=== PATIENT | male | born 1965 | race Caucasian/White ===

== ENCOUNTER 2021-06-18 19:28 | Inpatient (IN) | payer OTHER ==
[2021-06-18] MEDS ORDERED: VANCOMYCIN IV PER PHARMACY 1 EACH MISC MISCELLANE PRN (21:23)
[2021-06-18] MEDS ORDERED: SODIUM CHLORIDE 0.9% 1,000 ML IV STA (21:23)
[2021-06-18] MEDS ORDERED: MORPHINE SULFATE 4 MG/ML SYRINGE IVP STA (21:23)
[2021-06-18] MEDS ORDERED: VANCOMYCIN 1,750 MG in SODIUM CHLORIDE 0.9% 500 ML 500 ML IVPB ONE (21:45)
[2021-06-18] MEDS ORDERED: ACETAMINOPHEN TAB 500 MG TAB PO STA (22:39)
[2021-06-18] MEDS ORDERED: IBUPROFEN 600 MG TAB PO STA (22:39)
[2021-06-18 22:58] LABS: Albumin 3.9 g/dL (3.5-5.0); Calcium 8.7 mg/dL (8.4-10.2); Potassium 3.8 mmol/L (3.5-5.1); Total Bilirubin 1.5 mg/dL (0.2-1.3)
--- NOTE | 2021-06-18 23:04 | ED ---
Skin/Abscess/FB HPI - General Chief complaint: Skin/Abscess/Foreign Body Stated complaint: Cellulitis Time Seen by Provider: 06/18/21 21:09 Source: patient Mode of arrival: ambulatory Limitations: no limitations - History of Present Illness Initial comments: 55-year-old male presenting to the emergency department with a chief complaint of a skin infection. Patient reports this started about 3 days ago on his right buttock and has significantly increased since. States yesterday he was given Rocephin and started on doxycycline and Keflex by an urgent care. States it is not improving in symptoms at all. States now he is also developed another sim ilar infection on the right lower region of the abdomen. He reports fevers and chills at home. Denies any nausea vomiting or diarrhea. Not immunocompromise. Not diabetic. - Related Data Allergies Allergy/AdvReac Type Severity Reaction Status Date / Time No Known Allergies Allergy Verified 06/18/21 19:42 Review of Systems ROS Statement: Those systems with pertinent positive or pertinent negative responses have been documented in the HPI. ROS Other: All systems not noted in ROS Statement are negative. Past Medical History Past Medical History: Hyperlipidemia, Hypertension History of Any Multi-Drug Resistant Organisms: None Reported Past Surgical History: Hernia Repair, Orthopedic Surgery Past Psychological History: No Psychological Hx Reported Smoking Status: Former smoker Past Alcohol Use History: Occasional Past Drug Use History: None Reported General Exam Limitations: no limitations General appearance: alert, in no apparent distress, obese Head exam: Present: atraumatic, normocephalic, normal inspection Eye exam: Present: normal appearance Pupils: Present: normal accommodation ENT exam: Present: normal exam, normal oropharynx, mucous membranes moist Neck exam: Present: normal inspection, full ROM. Absent: tenderness Respiratory exam: Present: normal lung sounds bilaterally. Absent: respiratory distress, wheezes, rales, rhonchi, stridor Cardiovascular Exam: Present: regular rate, normal rhythm, normal heart sounds. Absent: systolic murmur GI/Abdominal exam: Present: soft. Absent: distended, tenderness, guarding Rectal exam: Absent: normal inspection (Large region of cellulitis in the right gluteal region) Extremities exam: Present: normal inspection, full ROM, normal capillary refill. Absent: tenderness Back exam: Present: normal inspection, full ROM. Absent: tenderness Neurological exam: Present: alert, oriented X3 Psychiatric exam: Present: normal affect, normal mood Skin exam: Present: warm, dry, intact, normal color Course Vital Signs 06/18/21 19:38 Temperature 99.9 F H Pulse Rate 113 H Respiratory 20 Rate Blood Pressure 147/82 O2 Sat by Pulse 94 L Oximetry Medical Decision Making - Medical Decision Making 55-year-old male presents to emergency with a chief complaint of skin infection. On physical examination, he has extensive cellulitis in the right gluteal region. Knee developing cellulitis in the lower abdomen. Patient is feeling outpatient treatment. Patient was started on vancomycin here. I did not initiate Rocephin considering he received a dose yesterday. Lactic acid within normal limits. Leukocytosis of 15,000. Patient given IV fluids, antiemetics and morphine for pain. CRP 26. X-ray pending to rule out that the infection site. Creatinine kinase pending. Patient will be admitted for further medical management. I discussed the case with . Case discussed with Dr. Alexander Infectious disease consult - Lab Data Result diagrams: 06/18/21 22:50 06/18/21 22:20 Lab Results 06/18/21 06/18/21 06/18/21 Range/Units 22:20 22:20 22:50 WBC 15.9 H (3.8-10.6) k/uL RBC 4.47 (4.30-5.90) m/uL Hgb 13.1 (13.0-17.5) gm/dL Hct 37.7 L (39.0-53.0) % MCV 84.4 (80.0-100.0) fL MCH 29.4 (25.0-35.0) pg MCHC 34.8 (31.0-37.0) g/dL RDW 13.2 (11.5-15.5) % Plt Count 122 L (150-450) k/uL MPV 7.9 Sodium 133 L (137-145) mmol/L Potassium 3.8 (3.5-5.1) mmol/L Chloride 97 L (98-107) mmol/L Carbon Dioxide 26 (22-30) mmol/L Anion Gap 10 mmol/L BUN 17 (9-20) mg/dL Creatinine 1.23 (0.66-1.25) mg/dL Est GFR (CKD-EPI)AfAm 75 (>60 ml/min/1.73 sqM) Est GFR (CKD-EPI)NonAf 65 (>60 ml/min/1.73 sqM) Glucose 147 H (74-99) mg/dL Plasma Lactic Acid Jose Alfredo 1.5 (0.7-2.0) mmol/L Calcium 8.7 (8.4-10.2) mg/dL Total Bilirubin 1.5 H (0.2-1.3) mg/dL AST 48 (17-59) U/L ALT 46 (4-49) U/L Alkaline Phosphatase 121 (38-126) U/L C-Reactive Protein 26.0 H (<1.0) mg/dL Total Protein 7.0 (6.3-8.2) g/dL Albumin 3.9 (3.5-5.0) g/dL Disposition Clinical Impression: Cellulitis, gluteal, right Disposition: ADMITTED IP TO THIS HOSP Condition: Fair Is patient prescribed a controlled substance at d/c from ED?: No Referrals: Nonstaff,Physician [Primary Care Provider] - 1-2 days Time of Disposition: 00:23
[2021-06-18 23:28] LABS: HCT 37.7 % (39.0-53.0); HGB 13.1 gm/dL (13.0-17.5); MCH 29.4 pg (25.0-35.0); MCHC 34.8 g/dL (31.0-37.0); MCV 84.4 fL (80.0-100.0); Mean Platelet Volume 7.9; Platelet Count 122 k/uL (150-450); RBC 4.47 m/uL (4.30-5.90); RDW 13.2 % (11.5-15.5); WBC 15.9 k/uL (3.8-10.6)
[2021-06-19] MEDS ORDERED: NALOXONE 0.4 MG/ML 1 ML VIAL IV PRN (00:28)
[2021-06-19] MEDS ORDERED: MORPHINE SULFATE 4 MG/ML SYRINGE IV PRN (00:28)
[2021-06-19] MEDS ORDERED: ONDANSETRON 4 MG/2 ML VIAL IVP PRN (00:28)
--- NOTE | 2021-06-19 01:06 | XR ---
EXAMINATION TYPE: XR pelvis AP view DATE OF EXAM: 06/19/2021 COMPARISON: NONE HISTORY: Cellulitis TECHNIQUE: Single view FINDINGS: Pelvic ring is intact. Proximal femurs and hip joints are intact. Sacroiliac joints appear normal. There is no evidence of free air in the pelvis. There are no pathologic calcifications. IMPRESSION: Negative exam. No sign of osteomyelitis.
[2021-06-19 01:16] LABS: Band Neutrophils % 12 %; Lymphocytes # (M) 0.32 k/uL (1.0-4.8); Monocytes # (M) 0.95 k/uL (0-1.0); Neutrophils % (M) 80 %; Nucleated Red Blood Cells 0 /100 WBC (0-0); Total Cells Counted 100
--- NOTE | 2021-06-19 01:36 | CT ---
EXAMINATION TYPE: CT abdomen pelvis w con DATE OF EXAM: 06/19/2021 COMPARISON: None HISTORY: glute abscess CT DLP: 2564.4 mGycm Automated exposure control for dose reduction was used. CONTRAST: Performed with IV Contrast, patient injected with 100 mL of Isovue 300. Images obtained from the diaphragm to the floor the pelvis with IV contrast. Lung bases are clear. There is no pleural effusion. Heart size is normal. There is no pericardial eff usion. There is hypodensity in the liver consistent with some fatty infiltration. Spleen is intact. Spleen i s enlarged and measures 18 cm. There is no pancreatic mass. There is small calcified gallstone. The b ile ducts are not dilated. There is no pancreatic mass. The stomach is intact. There is no adrenal mass. Kidneys show satisfactory contrast opacification. There is no hydronephrosi s. Ureters are not dilated. There is no retroperitoneal adenopathy. Appendix appears normal. Bladder distends smoothly. There is no inguinal hernia. There is no free fluid in the pelvis. There is no mes enteric edema. There is no ascites or free air. There is no evidence of bowel obstruction. Delayed im ages show normal renal excretion. The lumbar vertebra have normal alignment. There is spondylotic changes in the mid and lower lumbar s pine. There is no compression fracture. The bony pelvis is intact. Hip joints are intact. There is subcutaneous edema involving the right buttock. This extends to the gluteal cleft and over t he posterior right gluteal muscle. Area of inflammation measures up to 2.5 cm in thickness on the med ial aspect of the right buttock at the gluteal cleft. IMPRESSION: Inflammatory changes in the subcutaneous tissues of the right buttock with thickening. This is consis tent with cellulitis and phlegmon. No drainable fluid collection seen. No of acute abnormality within the abdomen and pelvis. Cholelithiasis. Splenomegaly.
[2021-06-19] MEDS ORDERED: AMPICILLIN-SULBACTAM 3 GM in SODIUM CHLORIDE 0.9% 100 ML IVPB SCH (01:45)
--- NOTE | 2021-06-19 01:56 | P.HPIM ---
History of Present Illness H&P Date: 06/19/21 Chief Complaint: right buttock infection 55 year old male with hypertension comes in with 3 days history of skin infection of the right buttock , now spreading to the right lower abd over the suprapubic area with a black center. no drainage has been noticed from both area. this is associated with pain , and fever/chills. never had any similar issues in the past, doesnt recall any injury to the area, or injection . he went to an urgent care couple days ago , and was given an injection of rocephin and started on PO keflex and doxy , with no improvement over past two days , so he decided tocome in for evaluation blood work did show leukocytosis , imaging did not show any drainable collection or gas bubbles in the soft tissue. Review of Systems Pertinent positives as noted in HPI. All other systems were reviewed and are negative Past Medical History Past Medical History: Hyperlipidemia, Hypertension History of Any Multi-Drug Resistant Organisms: None Reported Past Surgical History: Hernia Repair, Orthopedic Surgery Past Psychological History: No Psychological Hx Reported Smoking Status: Former smoker Past Alcohol Use History: Occasional Past Drug Use History: None Reported - Past Family History family Family Medical History: No Reported History Medications and Allergies Allergies Allergy/AdvReac Type Severity Reaction Status Date / Time No Known Allergies Allergy Verified 06/18/21 19:42 Physical Exam Vitals: Vital Signs Temp Pulse Resp BP Pulse Ox 06/19/21 00:49 98.9 F 86 20 121/67 96 06/18/21 23:00 100.0 F H 100 20 130/77 98 06/18/21 19:38 99.9 F H 113 H 20 147/82 94 L Intake and Output 06/18/21 06/18/21 06/19/21 14:59 22:59 06:59 Other: Weight 108.862 kg Constitutional: No acute distress, conversant, pleasant Eyes: Anicteric sclerae, moist conjunctiva, Pupils equal round reactive to light ENMT: NC/AT Oropharynx clear, no erythema, or exudates Neck: Supple, FROM, no masses, or JVD No carotid bruits No thyromegaly Lungs: Clear to auscultation Clear to percussion Normal respiratory effort, no accessory muscle use Cardiovascular: Heart regular in rate and rhythm, No murmurs, gallops, or rubs No peripheral edema Abdominal: Soft Nontender, no guarding, rebound or rigidity Abdomen moving with respiration Normoactive bowel sounds No hepatomegaly, No splenomegaly No palpable mass No abdominal wall hernia noted Skin: there large area of induration and erythema tender and warm to palpation over the right buttock , extending to the perineum , not involving the scrotal area. , no drainage noticed. another smaller area 3X3 cm over the right suprapubic region with central black skin discoloration and surrounded by induration adn erythema no drainage , otherwise Normal temperature, tone, texture, turgor Extremities: No digital cyanosis No clubbing Pedal pulses intact and symmetrical Radial pulses intact and symmetrical No calf tenderness Psychiatric: Alert and oriented to person, place and time Appropriate affect fair judgement Neuro Muscles Strength 5/5 in all 4 extremities Sensation to light touch grossly present throughout Cranial nerves II-XII grossly intact No focal sensory deficits Lymphatics: no palpable cervical or supraclavicular , or inguinal lymph nodes Results CBC & Chem 7: 06/18/21 22:50 06/18/21 22:20 Labs: Abnormal Lab Results - Last 24 Hours (Table) 06/18/21 06/18/21 Range/Units 22:20 22:50 WBC 15.9 H (3.8-10.6) k/uL Hct 37.7 L (39.0-53.0) % Plt Count 122 L (150-450) k/uL Neutrophils # (Manual) 14.60 H (1.3-7.7) k/uL Lymphocytes # (Manual) 0.32 L (1.0-4.8) k/uL Sodium 133 L (137-145) mmol/L Chloride 97 L (98-107) mmol/L Glucose 147 H (74-99) mg/dL Total Bilirubin 1.5 H (0.2-1.3) mg/dL C-Reactive Protein 26.0 H (<1.0) mg/dL Assessment and Plan Assessment: sepsis cellulitis of the skin without identifiable abscess of the right buttock and perineum (failed outpatient therapy ) blood cultures imaging did not show any drainable abscess or gas forming in the soft tissue. check CK start on vanco and uansyn monitor vital signs aggressive IV fluid hydration with normal saline , 2 L NS 0.9% bolus then maintenance at 130 cc per hour lactic acid unremarkable pain control with opiates tylenol for fever warm compressors ID consultation heparin for dvt ppx sc tid anticipated length of stay > 2 midnights anticipated discharge home
[2021-06-19] MEDS: SODIUM CHLORIDE 0.9% 1,000 ML IV SCH ×3 (03:58→22:21)
[2021-06-19] MEDS: AMPICILLIN-SULBACTAM 3 GM in SODIUM CHLORIDE 0.9% 100 ML IVPB SCH ×4 (05:58→23:41)
[2021-06-19] MEDS: HEPARIN SODIUM,PORCINE/PF 5,000 UNIT/0.5 ML SYRINGE SQ SCH ×3 (08:14→23:41)
[2021-06-19 08:58] LABS: Basophils % (A) 0 %; Eosinophils # (A) 0.1 k/uL (0-0.7); Eosinophils % (A) 1 %; HCT 41.5 % (39.0-53.0); HGB 14.2 gm/dL (13.0-17.5); Lymphocytes # (A) 1.3 k/uL (1.0-4.8); Lymphocytes % (A) 7 %; MCH 29.6 pg (25.0-35.0); MCHC 34.1 g/dL (31.0-37.0); MCV 86.8 fL (80.0-100.0); Mean Platelet Volume 7.8; Monocytes % (A) 6 %; Neutrophils # (A) 15.2 k/uL (1.3-7.7); Neutrophils % (A) 84 %; Platelet Count 142 k/uL (150-450); RBC 4.78 m/uL (4.30-5.90); RDW 13.4 % (11.5-15.5)
[2021-06-19 09:02] LABS: ALT 38 U/L (4-49); AST 32 U/L (17-59); African American GFR (CKD) >90 (>60 ml/min/1.73 sqM); Albumin 3.7 g/dL (3.5-5.0); Albumin/Globulin Ratio 1.2; Alkaline Phosphatase 108 U/L (38-126); Anion Gap 10 mmol/L; Blood Urea Nitrogen 16 mg/dL (9-20); Calcium 8.3 mg/dL (8.4-10.2); Carbon Dioxide 28 mmol/L (22-30); Chloride 101 mmol/L (98-107); Creatine Kinase 89 U/L (55-170); Glucose 117 mg/dL (74-99); Non-African American GFR(CKD) 81 (>60 ml/min/1.73 sqM); Potassium 3.7 mmol/L (3.5-5.1); Sodium 139 mmol/L (137-145); Total Bilirubin 1.5 mg/dL (0.2-1.3); Total Protein 6.7 g/dL (6.3-8.2)
[2021-06-19] MEDS: ACETAMINOPHEN TAB 325 MG TAB PO PRN ×2 (09:52→19:14)
[2021-06-19] MEDS: VANCOMYCIN 1,750 MG in SODIUM CHLORIDE 0.9% 500 ML 500 ML IVPB SCH (12:25)
[2021-06-19] MEDS: IBUPROFEN 400 MG TAB PO PRN (12:29)
[2021-06-20] MEDS: VANCOMYCIN 1,750 MG in SODIUM CHLORIDE 0.9% 500 ML 500 ML IVPB SCH ×2 (00:27→14:05)
[2021-06-20] MEDS: AMPICILLIN-SULBACTAM 3 GM in SODIUM CHLORIDE 0.9% 100 ML IVPB SCH ×4 (05:03→23:02)
[2021-06-20] MEDS: IBUPROFEN 400 MG TAB PO PRN ×2 (05:12→23:03)
[2021-06-20 06:01] LABS: African American GFR (CKD) >90 (>60 ml/min/1.73 sqM); Anion Gap 7 mmol/L; Blood Urea Nitrogen 14 mg/dL (9-20); Calcium 7.8 mg/dL (8.4-10.2); Carbon Dioxide 27 mmol/L (22-30); Chloride 102 mmol/L (98-107); Glucose 105 mg/dL (74-99); Non-African American GFR(CKD) 87 (>60 ml/min/1.73 sqM); Potassium 3.5 mmol/L (3.5-5.1); Sodium 136 mmol/L (137-145)
[2021-06-20] MEDS: SODIUM CHLORIDE 0.9% 1,000 ML IV SCH ×3 (06:20→20:58)
--- NOTE | 2021-06-20 08:37 | P.CONS ---
History of Present Illness - Reason for Consult Consult date: 06/19/21 gluteal cellulitis Requesting physician: Vale Newsome - Chief Complaint right buttock pain x 3 days - History of Present Illness History of present illness : Patient is a 55-year-old male presenting to the ER for evaluation of right buttock pain swelling and redness that has been going on for 3 days before presentation to the hospital patient denies having history of any trauma did not notice any pimple noticed the right gluteal area becoming swollen red and painful described the pain to be more of a throbbing to dull aching 6-7 out of 10 no radiation with associated swelling redness do not have any open wound or any drainage patient also developed a p imple on his lower abdominal area for the last few days with associated surrounding swelling redness and some mild aching pain patient was seen in the urgent care day before yesterday the patient was given a dose of Rocephin and was started on doxycycline Keflex however did not have any improvement as the patient presented to the hospital for further evaluation on presentation to the hospital patient did have a fever of 103 Fahrenheit patient did have white count of 15 point 9 repeat is 18,000 today kidney function has been normal booth PCR was negative blood cultures obtained which are currently pending patient did have a CT of the abdominal pelvis which shows inflammatory changes in the s ubcutaneous tissue of the right buttock with thickening cellulitis and phlegmon no abscess patient has been started on Unasyn and vancomycin infectious disease was consulted for further management of antibiotic therapy Review of system: CONSTITUTIONAL: Positive for weakness along with the fever. EYES: No complaint. ENT: No complaint. RESPIRATORY: No complaint. CARDIOVASCULAR: No complaint. GENITOURINARY: No complaint. GASTROINTESTINAL: No complaint. MUSCULOSKELETAL: No complaint. INTEGUMENTARY: As per history of present illness. PSYCHOLOGIC: No complaint. ENDOCRINE: No complaint. NEUROLOGIC: No complaint. Past medical history : Reviewed, documented below Past surgical history : Reviewed, documented below Social history: Reviewed, documented below Medications: Reviewed, as documented below EXAMINATION: Vital sigans= Reviewed and documented below GENERAL DESCRIPTION: Middle-aged male lying in bed, no distress. No tachypnea or accessory muscle of respiration use. HEENT: Shows Pallor , no scleral icterus. Oral mucous membrane is dry. NECK: Trachea central, no thyromegaly. LUNGS: Unlabored breathing. Clear to auscultation anteriorly. No wheeze or crackle. HEART: S1, S2, regular rate and rhythm. ABDOMEN: Soft, no tenderness , guarding or rigidity EXTREMITIES: No edema of feet. SKIN: Pustule on the lower abdominal area with surrounding redness no drainage was noticed, patient did have a right gluteal swelling redness tenderness and induration no open wound or any drainage. NEUROLOGICAL: The patient is awake, alert, oriented x3, mood and affect normal. LABS AND RADIOLOGY: Reviewed results see below Assessment : 1-patient presented to hospital with lower abdominal wall associated with second cellulitis as well as right gluteal cellulitis high clinic suspicious for staphylococcal infection that has failed outpatient oral Keflex and doxycycline therapy more likely because of the burden of disease Plan: 1-RN has been instructed to obtain cultures if the area started to drain 2-Roberto the area of the redness 3-vancomycin pharmacy to dose with a target trough of 15 while watching kidney function and Vanco trough closely. We will follow on clinical condition and cultures to further adjust medication if needed Thank you for this consultation we will follow the patient along with you Past Medical History Past Medical History: Hyperlipidemia, Hypertension History of Any Multi-Drug Resistant Organisms: None Reported Past Surgical History: Hernia Repair, Orthopedic Surgery Past Psychological History: No Psychological Hx Reported Smoking Status: Former smoker Past Alcohol Use History: Occasional Past Drug Use History: None Reported - Past Family History family Family Medical History: No Reported History Medications and Allergies Home Medications Medication Instructions Recorded Confirmed Type Finasteride 1 mg PO DAILY 06/19/21 06/19/21 History Losartan Potassium [Cozaar] 25 mg PO DAILY 06/19/21 06/19/21 History Magnesium 250 mg PO DAILY 06/19/21 06/19/21 History Multivitamins, Thera [Multivitamin 1 tab PO DAILY 06/19/21 06/19/21 History (formulary)] Omeprazole 20 mg PO DAILY 06/19/21 06/19/21 History Pravastatin Sodium [Pravachol] 20 mg PO HS 06/19/21 06/19/21 History Pravastatin Sodium [Pravachol] 40 mg PO HS 06/19/21 06/19/21 History Sertraline HCl [Zoloft] 100 mg PO DAILY 06/19/21 06/19/21 History hydroCHLOROthiazide [Hydrodiuril] 25 mg PO DAILY 06/19/21 06/19/21 History Allergies Allergy/AdvReac Type Severity Reaction Status Date / Time No Known Allergies Allergy Verified 06/19/21 08:14 Physical Exam Vitals: Vital Signs Temp Pulse Pulse Resp BP BP Pulse Ox 06/19/21 13:53 77 17 06/19/21 07:00 97.9 F 77 17 104/71 99 06/19/21 04:13 60 18 06/19/21 03:23 97.6 F 68 22 114/76 97 06/19/21 00:49 98.9 F 86 20 121/67 96 06/18/21 23:00 100.0 F H 100 20 130/77 98 06/18/21 19:38 99.9 F H 113 H 20 147/82 94 L Intake and Output 06/18/21 06/19/21 06/19/21 22:59 06:59 14:59 Intake Total 1116 Balance 1116 Intake: Intake, IV Titration 880 Amount Ampicillin-Sulbactam 3 gm 100 In Sodium Chloride 0.9% 100 ml @ 200 mls/hr IVPB Q6HR REPLACED BY [facility] Rx#:[id number] Sodium Chloride 0.9% 1, 780 000 ml @ 130 mls/hr IV . Q7H42M REPLACED BY [facility] Rx#:[id number] Oral 236 Other: Voiding Method Toilet Toilet # Voids 0 2 Weight 108.862 kg 108.862 kg Results CBC & Chem 7: 06/19/21 08:06 06/20/21 05:31 Labs: Abnormal Lab Results - Last 24 Hours (Table) 06/18/21 06/18/21 06/19/21 Range/Units 22:20 22:50 08:06 WBC 15.9 H 18.0 H (3.8-10.6) k/uL Hct 37.7 L (39.0-53.0) % Plt Count 122 L 142 L (150-450) k/uL Neutrophils # 15.2 H (1.3-7.7) k/uL Neutrophils # (Manual) 14.60 H (1.3-7.7) k/uL Lymphocytes # (Manual) 0.32 L (1.0-4.8) k/uL Sodium 133 L (137-145) mmol/L Chloride 97 L (98-107) mmol/L Glucose 147 H (74-99) mg/dL Calcium (8.4-10.2) mg/dL Total Bilirubin 1.5 H (0.2-1.3) mg/dL C-Reactive Protein 26.0 H (<1.0) mg/dL 06/19/21 Range/Units 08:06 WBC (3.8-10.6) k/uL Hct (39.0-53.0) % Plt Count (150-450) k/uL Neutrophils # (1.3-7.7) k/uL Neutrophils # (Manual) (1.3-7.7) k/uL Lymphocytes # (Manual) (1.0-4.8) k/uL Sodium (137-145) mmol/L Chloride (98-107) mmol/L Glucose 117 H (74-99) mg/dL Calcium 8.3 L (8.4-10.2) mg/dL Total Bilirubin 1.5 H (0.2-1.3) mg/dL C-Reactive Protein (<1.0) mg/dL
[2021-06-20] MEDS: ACETAMINOPHEN TAB 325 MG TAB PO PRN (09:13)
[2021-06-20] MEDS: HEPARIN SODIUM,PORCINE/PF 5,000 UNIT/0.5 ML SYRINGE SQ SCH ×3 (09:14→23:02)
--- NOTE | 2021-06-20 13:35 | P.PN ---
Subjective Progress Note Date: 06/20/21 No new complaints. Pain profile improving. ID recs appreciated. Objective - Vital Signs Vital signs: Vital Signs Temp 98.3 F 06/20/21 07:00 Pulse 75 06/20/21 13:09 Resp 16 06/20/21 13:09 BP 105/71 06/20/21 07:00 Pulse Ox 95 06/20/21 07:00 Intake & Output 06/19/21 06/20/21 06/20/21 18:59 06:59 18:59 Intake Total 1116 100 Balance 1116 100 Intake: Intake, IV Titration 880 100 Amount Ampicillin-Sulbactam 3 gm 100 100 In Sodium Chloride 0.9% 100 ml @ 200 mls/hr IVPB Q6HR [facility] Rx#:[id number] Sodium Chloride 0.9% 1, 780 000 ml @ 130 mls/hr IV . Q7H42M [facility] Rx#:[id number] Oral 236 Other: Voiding Method Toilet Toilet Toilet # Voids 2 1 3 - Exam Gen: awake, alert HEENT: normocephalic, atraumatic, good hearing acuity, moist mucous membranes Resp: good air exchange, breathing comfortably with no accessory muscle use CVS: good distal perfusion x 4, GI: soft, NTTP, ND : no SPT, no CVAT, serna catheter not present MSK: no pitting edema, no clubbing Neuro: non-focal, moving all extremities Psych: cooperative, euthymic mood - Labs CBC & Chem 7: 06/19/21 08:06 06/20/21 05:31 Labs: Abnormal Lab Results - Last 24 Hours (Table) 06/20/21 Range/Units 05:31 Sodium 136 L (137-145) mmol/L Glucose 105 H (74-99) mg/dL Calcium 7.8 L (8.4-10.2) mg/dL Microbiology - Last 24 Hours (Table) 06/18/21 22:15 Blood Culture - Preliminary Blood No Growth after 24 hours 06/18/21 22:00 Blood Culture - Preliminary Blood No Growth after 24 hours Assessment and Plan Assessment: sepsis cellulitis of the skin without identifiable abscess of the right buttock and perineum (failed outpatient therapy ) blood cultures imaging did not show any drainable abscess or gas forming in the soft tissue. check CK start on vanco and uansyn monitor vital signs aggressive IV fluid hydration with normal saline , 2 L NS 0.9% bolus then maintenance at 130 cc per hour lactic acid unremarkable pain control with opiates tylenol for fever warm compressors ID consultation heparin for dvt ppx sc tid anticipated length of stay > 2 midnights anticipated discharge home
[2021-06-20] MEDS: VANCOMYCIN 2,000 MG in SODIUM CHLORIDE 0.9% 500 ML 500 ML IVPB SCH (23:41)
[2021-06-21] MEDS: SODIUM CHLORIDE 0.9% 1,000 ML IV SCH ×3 (03:36→21:49)
--- NOTE | 2021-06-21 06:29 | PN ---
PROGRESS NOTE DATE OF SERVICE: 06/20/2021 REASON FOR FOLLOWUP: Right gluteal and abdominal wall abscess cellulitis. INTERVAL HISTORY: The patient is afebrile. The patient is breathing comfortably. Patient denies having any chest pain, shortness of breath, cough. No abdominal pain. The patient did mention still having drainage from his gluteal abscess area that has been cultured. PHYSICAL EXAMINATION: Blood pressure 111/66, pulse of 82, temperature 98.5. He is 96% on room air. General description is a middle-aged male lying in bed in no distress. Respiratory system: Unlabored breathing, clear to auscultation anteriorly. Heart S1, S2. Regular rate and rhythm. Abdominal wall swelling has decreased. Gluteal area induration has slightly decreased. LABS: Cultures currently pending. DIAGNOSTIC IMPRESSION AND PLAN: Patient with abdominal wall cellulitis along with right gluteal abscess and cellulitis. The patient is currently covered with vancomycin and Unasyn to continue while waiting for the culture to finalize and monitor clinical course closely. MMODL / IJN: [id number] /
[2021-06-21] MEDS: AMPICILLIN-SULBACTAM 3 GM in SODIUM CHLORIDE 0.9% 100 ML IVPB SCH ×4 (07:17→23:51)
[2021-06-21] MEDS: HEPARIN SODIUM,PORCINE/PF 5,000 UNIT/0.5 ML SYRINGE SQ SCH ×2 (08:26→18:12)
[2021-06-21] MEDS ORDERED: VANCOMYCIN TROUGH DUE 1 EACH MISC MISCELLANE ONE (11:00)
[2021-06-21 11:56] LABS: African American GFR (CKD) >90 (>60 ml/min/1.73 sqM); Non-African American GFR(CKD) >90 (>60 ml/min/1.73 sqM)
[2021-06-21] MEDS: VANCOMYCIN 2,000 MG in SODIUM CHLORIDE 0.9% 500 ML 500 ML IVPB SCH (13:01)
[2021-06-21] MEDS: ACETAMINOPHEN TAB 325 MG TAB PO PRN (13:01)
[2021-06-21] MEDS: IBUPROFEN 400 MG TAB PO PRN (13:02)
--- NOTE | 2021-06-21 13:39 | P.PN ---
Subjective Progress Note Date: 06/21/21 No new complaints today. Gluteal wound is now spontaneously draining. Pain is significantly improved. Cx pending. Objective - Vital Signs Vital signs: Vital Signs Temp 97.9 F 06/21/21 07:00 Pulse 78 06/21/21 07:00 Resp 18 06/21/21 07:00 BP 116/71 06/21/21 07:00 Pulse Ox 95 06/21/21 07:00 Intake & Output 06/20/21 06/21/21 06/21/21 18:59 06:59 18:59 Intake Total 236 120 Balance 236 120 Intake: Oral 236 120 Other: Voiding Method Toilet Toilet # Voids 3 2 1 # Bowel Movements 0 - Exam Gen: awake, alert HEENT: normocephalic, atraumatic, good hearing acuity, moist mucous membranes Resp: good air exchange, breathing comfortably with no accessory muscle use CVS: good distal perfusion x 4, GI: soft, NTTP, ND : no SPT, no CVAT, serna catheter not present MSK: no pitting edema, no clubbing Neuro: non-focal, moving all extremities Psych: cooperative, euthymic mood - Labs CBC & Chem 7: 06/19/21 08:06 06/21/21 11:17 Labs: Microbiology - Last 24 Hours (Table) 06/18/21 22:00 Blood Culture - Preliminary Blood No Growth after 48 hours 06/18/21 22:15 Blood Culture - Preliminary Blood No Growth after 48 hours Assessment and Plan Assessment: sepsis cellulitis of the skin without identifiable abscess of the right buttock and perineum (failed outpatient therapy ) blood cultures imaging did not show any drainable abscess or gas forming in the soft tissue. check CK start on vanco and uansyn monitor vital signs aggressive IV fluid hydration with normal saline , 2 L NS 0.9% bolus then maintenance at 130 cc per hour lactic acid unremarkable pain control with opiates tylenol for fever warm compressors ID consultation heparin for dvt ppx sc tid anticipated length of stay > 2 midnights anticipated discharge home
--- NOTE | 2021-06-21 18:59 | PN ---
PROGRESS NOTE DATE OF SERVICE: 06/21/2021 REASON FOR FOLLOWUP: Right gluteal and abdominal wall abscess and cellulitis. INTERVAL HISTORY: The patient is afebrile. The patient is breathing comfortably. Overall pain discomfort has slightly decreased. No chest pain, shortness of breath or cough. No abdominal pain and no diarrhea. PHYSICAL EXAMINATION: Blood pressure 122/75, pulse 76. Temperature 97.8. He is 94% on room air. General description is a middle-aged male lying in bed in no distress. Respiratory system: Unlabored breathing, clear to auscultation anteriorly. Heart S1, S2. Regular rate and rhythm. Abdomen soft. The abdominal wall swelling is slightly decreased. Wound has opened up, wound cultures obtained. Right gluteal induration has decreased. LABS: Creatinine 0.84. Blood culture negative. Unfortunately the cultures that were done by the nursing staff has been lost. DIAGNOSTIC IMPRESSION AND PLAN: Patient with right gluteal abscess, cellulitis, also with abdominal wall cellulitis. Culture has been obtained today. Patient to continue vancomycin and Unasyn with discharge antibiotic based on culture report. Continue supportive care. MMODL / IJN: [id number] /
[2021-06-21] MEDS: PRAVASTATIN SODIUM 40 MG TAB PO SCH (19:51)
[2021-06-21] MEDS: PRAVASTATIN SODIUM 20 MG TAB PO SCH (19:51)
[2021-06-22] MEDS: VANCOMYCIN 2,000 MG in SODIUM CHLORIDE 0.9% 500 ML 500 ML IVPB SCH ×2 (00:37→14:36)
[2021-06-22] MEDS: HEPARIN SODIUM,PORCINE/PF 5,000 UNIT/0.5 ML SYRINGE SQ SCH ×3 (00:39→16:36)
[2021-06-22] MEDS: IBUPROFEN 400 MG TAB PO PRN (04:45)
[2021-06-22] MEDS: SODIUM CHLORIDE 0.9% 1,000 ML IV SCH ×3 (05:01→20:53)
[2021-06-22] MEDS: AMPICILLIN-SULBACTAM 3 GM in SODIUM CHLORIDE 0.9% 100 ML IVPB SCH ×3 (05:47→17:57)
[2021-06-22] MEDS: LOSARTAN 25 MG TAB PO SCH (08:42)
[2021-06-22] MEDS: SERTRALINE 100 MG TAB PO SCH (08:43)
[2021-06-22] MEDS: PANTOPRAZOLE 40 MG TABLET PO SCH (08:43)
[2021-06-22] MEDS: CALCIUM CARBONATE 500 MG CHEWABLE PO PRN ×2 (09:12→16:36)
[2021-06-22] MEDS: hydroCHLOROthiazide 25 MG TAB PO SCH (09:13)
[2021-06-22] MEDS: NON FORMULARY DRUG (Finasteride [Finasteride] 1 MG Tablet) PO SCH (09:14)
[2021-06-22 10:10] LABS: HCT 35.3 % (39.0-53.0); HGB 12.4 gm/dL (13.0-17.5); MCH 29.5 pg (25.0-35.0); MCV 84.3 fL (80.0-100.0); Mean Platelet Volume 7.8; Platelet Count 185 k/uL (150-450); RBC 4.19 m/uL (4.30-5.90); RDW 13.6 % (11.5-15.5); WBC 7.1 k/uL (3.8-10.6)
--- NOTE | 2021-06-22 10:34 | XR ---
EXAMINATION TYPE: XR abdomen acute w cxr DATE OF EXAM: 06/22/2021 COMPARISON: NONE HISTORY: Pain TECHNIQUE: Single view of the chest and 2 views of the abdomen are submitted. FINDINGS: Single view of the chest fails demonstrate evidence for acute pulmonary disease. There is no evidence for pneumoperitoneum. The bowel gas pattern is unremarkable as there is air throughout nondilated small and large bowel. No sizeable air fluid levels.No mass effects are seen. No unusual calcifications. IMPRESSION: 1. Unremarkable study.
[2021-06-22 10:43] LABS: ALT 186 U/L (4-49); AST 142 U/L (17-59); African American GFR (CKD) >90 (>60 ml/min/1.73 sqM); Albumin 3.1 g/dL (3.5-5.0); Albumin/Globulin Ratio 1.1; Alkaline Phosphatase 121 U/L (38-126); Anion Gap 8 mmol/L; Bilirubin,Unconjugated 0.2 mg/dL (0.0-1.1); Blood Urea Nitrogen 15 mg/dL (9-20); Carbon Dioxide 26 mmol/L (22-30); Chloride 106 mmol/L (98-107); Globulin 2.9 g/dL; Glucose 102 mg/dL (74-99); Magnesium 1.9 mg/dL (1.6-2.3); Non-African American GFR(CKD) >90 (>60 ml/min/1.73 sqM); Potassium 4.3 mmol/L (3.5-5.1); Sodium 140 mmol/L (137-145); Total Bilirubin 0.5 mg/dL (0.2-1.3)
--- NOTE | 2021-06-22 10:56 | P.PN ---
Subjective Progress Note Date: 06/22/21 Pt c/o abd pain, and frequent stools. Not watery. Non-bloody. No n/v. LFTs mildly elevated. Abd XR neg for acute pathology. Objective - Vital Signs Vital signs: Vital Signs Temp 97.4 F L 06/22/21 07:00 Pulse 68 06/22/21 07:00 Resp 16 06/22/21 07:00 BP 128/84 06/22/21 07:00 Pulse Ox 93 L 06/22/21 07:00 Intake & Output 06/21/21 06/22/21 06/22/21 18:59 06:59 18:59 Intake Total 480 Balance 480 Intake: Oral 480 Other: Voiding Method Toilet # Voids 1 2 # Bowel Movements 0 - Exam Gen: awake, alert HEENT: normocephalic, atraumatic, good hearing acuity, moist mucous membranes Resp: good air exchange, breathing comfortably with no accessory muscle use CVS: good distal perfusion x 4, GI: soft, TTP in epigastrum, bloated : no SPT, no CVAT, serna catheter not present MSK: no pitting edema, no clubbing Neuro: non-focal, moving all extremities Psych: cooperative, euthymic mood - Labs CBC & Chem 7: 06/22/21 09:33 06/22/21 09:33 Labs: Abnormal Lab Results - Last 24 Hours (Table) 06/22/21 06/22/21 Range/Units 09:33 09:33 RBC 4.19 L (4.30-5.90) m/uL Hgb 12.4 L (13.0-17.5) gm/dL Hct 35.3 L (39.0-53.0) % Glucose 102 H (74-99) mg/dL Calcium 8.0 L (8.4-10.2) mg/dL AST 142 H (17-59) U/L ALT 186 H (4-49) U/L Total Protein 6.0 L (6.3-8.2) g/dL Albumin 3.1 L (3.5-5.0) g/dL Microbiology - Last 24 Hours (Table) 06/21/21 11:45 Gram Stain - Preliminary Groin Wound Culture - Preliminary Presumptive MRSA 06/18/21 22:15 Blood Culture - Preliminary Blood No Growth after 72 hours 06/18/21 22:00 Blood Culture - Preliminary Blood No Growth after 72 hours Assessment and Plan Assessment: Sepsis Cellulitis of the skin without identifiable abscess of the right buttock and perineum (failed outpatient therapy ) blood cultures - NGTD start on vanco and uansyn monitor vital signs IVF maintenance at 130 cc per hour pain control with opiates tylenol for fever warm compressors ID consultation Abdominal Pain Elevated LFTs Tums PRN PPI Pain control as above Abd US pending heparin for dvt ppx sc tid anticipated length of stay > 2 midnights anticipated discharge home
--- NOTE | 2021-06-22 11:43 | US ---
EXAMINATION TYPE: US abdomen complete DATE OF EXAM: 06/22/2021 COMPARISON: CT 2020 CLINICAL HISTORY: RUQ pain. Exam done portable EXAM MEASUREMENTS: Liver Length: 20.0 cm Gallbladder Wall: 0.2 cm CBD: 0.4 cm Spleen: 15.6 cm Right Kidney: 11.6 x 4.9 x 6.4 cm Left Kidney: 11.8 x 6.1 x 5.7 cm Pancreas: visualized portions wnl, limited by overlying midline bowel gas Liver: enlarged, attenuating, heterogeneous Gallbladder: multiple echogenic foci Evidence for sonographic Correa's sign: no CBD: visualized portions wnl, limited by overlying bowel gas Spleen: enlarged Right Kidney: wnl Left Kidney: wnl Upper IVC: wnl Abd Aorta: prox portion wnl, mid and distal portions obscured by overlying midline bowel gas The intrahepatic portion of the IVC and proximal abdominal aorta are within normal limits. Common bi le duct is unremarkable. The visualized portions of the pancreas are homogenous. The spleen is unre markable. Kidneys are symmetric and free of hydronephrosis. No renal lesions are seen. IMPRESSION: Uncomplicated cholelithiasis. Fatty liver.
[2021-06-22 12:43] LABS: Band Neutrophils % 4 %; Eosinophils # (M) 0.21 k/uL (0-0.7); Lymphocytes # (M) 1.21 k/uL (1.0-4.8); Metamyelocytes # (M) 0.36 k/uL (0); Metamyelocytes % 5 %; Monocytes # (M) 0.43 k/uL (0-1.0); Myelocytes # (M) 0.28 k/uL (0); Myelocytes % 4 %; Neutrophils % (M) 62 %; Nucleated Red Blood Cells 0 /100 WBC (0-0); Total Cells Counted 200
[2021-06-22] MEDS: PRAVASTATIN SODIUM 40 MG TAB PO SCH (20:53)
[2021-06-22] MEDS: PRAVASTATIN SODIUM 20 MG TAB PO SCH (20:53)
[2021-06-22] MEDS ORDERED: VANCOMYCIN TROUGH DUE 1 EACH MISC MISCELLANE ONE (23:00)
[2021-06-23] MEDS: VANCOMYCIN 2,000 MG in SODIUM CHLORIDE 0.9% 500 ML 500 ML IVPB SCH ×2 (00:50→14:21)
[2021-06-23] MEDS: HEPARIN SODIUM,PORCINE/PF 5,000 UNIT/0.5 ML SYRINGE SQ SCH ×3 (00:51→14:21)
[2021-06-23] MEDS: SODIUM CHLORIDE 0.9% 1,000 ML IV SCH ×3 (00:57→19:14)
[2021-06-23] MEDS: LOSARTAN 25 MG TAB PO SCH (08:37)
[2021-06-23] MEDS: PANTOPRAZOLE 40 MG TABLET PO SCH (08:37)
[2021-06-23] MEDS: hydroCHLOROthiazide 25 MG TAB PO SCH (08:38)
[2021-06-23] MEDS: ACETAMINOPHEN TAB 325 MG TAB PO PRN (08:47)
--- NOTE | 2021-06-23 09:08 | PN ---
PROGRESS NOTE DATE OF SERVICE: 06/22/2021 REASON FOR FOLLOWUP: Right gluteal abscess, cellulitis and abdominal wall cellulitis. INTERVAL HISTORY: The patient is afebrile. The patient is breathing comfortably. Patient denies having any chest pain. No shortness of breath or cough. Has been complaining of abdominal bloating today. No nausea, no vomiting. Having a bowel movement. PHYSICAL EXAMINATION: Blood pressure 129/74, pulse of 72. Temperature is 97.7. He is 93% on room air. General description is a middle-aged male lying in bed in no distress. Respiratory system: Unlabored breathing, clear to auscultation anteriorly. Heart S1, S2. Regular rate and rhythm. Abdominal wall swelling and redness has decreased. The right gluteal induration and redness has decreased. LABS: Hemoglobin is 12.4, white count 7.1. BUN of 15, creatinine 0.91. Abdominal wall cultures with presumptive MRSA. DIAGNOSTIC IMPRESSION AND PLAN: Patient with abdominal wall and right gluteal abscess cellulitis secondary to the MRSA. Vancomycin will be continued. We will discontinue Unasyn, hopefully transition to oral antibiotic on discharge. Continue supportive care. MMODL / IJN: [id number] /
[2021-06-23 10:58] LABS: ALT 172 U/L (4-49); AST 98 U/L (17-59); African American GFR (CKD) >90 (>60 ml/min/1.73 sqM); Albumin 3.5 g/dL (3.5-5.0); Albumin/Globulin Ratio 1.2; Alkaline Phosphatase 127 U/L (38-126); Anion Gap 9 mmol/L; Bilirubin,Unconjugated 0.3 mg/dL (0.0-1.1); Blood Urea Nitrogen 10 mg/dL (9-20); Calcium 8.4 mg/dL (8.4-10.2); Carbon Dioxide 25 mmol/L (22-30); Chloride 105 mmol/L (98-107); Glucose 93 mg/dL (74-99); Magnesium 1.9 mg/dL (1.6-2.3); Non-African American GFR(CKD) >90 (>60 ml/min/1.73 sqM); Potassium 4.3 mmol/L (3.5-5.1); Sodium 139 mmol/L (137-145); Total Bilirubin 0.6 mg/dL (0.2-1.3); Total Protein 6.5 g/dL (6.3-8.2)
--- NOTE | 2021-06-23 11:01 | P.PN ---
Subjective Progress Note Date: 06/23/21 Pt reports pain in his gluteal area got much worse overnight. Abdominal pain has resolved. Growing presumptive MRSA, sensitivities pending. Abd US significant for gallstones. LFTs mildly elevated. Objective - Vital Signs Vital signs: Vital Signs Temp 97.9 F 06/23/21 07:00 Pulse 70 06/23/21 07:00 Resp 16 06/23/21 07:00 BP 144/90 06/23/21 07:00 Pulse Ox 95 06/23/21 07:00 Intake & Output 06/22/21 06/23/21 06/23/21 18:59 06:59 18:59 Intake Total 120 Balance 120 Intake: Oral 120 Other: Voiding Method Toilet # Voids 4 3 # Bowel Movements 2 - Exam Gen: awake, alert HEENT: normocephalic, atraumatic, good hearing acuity, moist mucous membranes Resp: good air exchange, breathing comfortably with no accessory muscle use CVS: good distal perfusion x 4, GI: soft, TTP in epigastrum, bloated : no SPT, no CVAT, serna catheter not present MSK: no pitting edema, no clubbing Neuro: non-focal, moving all extremities Psych: cooperative, euthymic mood - Labs CBC & Chem 7: 06/22/21 09:33 06/23/21 09:43 Labs: Abnormal Lab Results - Last 24 Hours (Table) 06/22/21 06/23/21 Range/Units 09:33 09:43 Metamyelocytes # (Man) 0.36 H (0) k/uL Myelocytes # (Manual) 0.28 H (0) k/uL AST 98 H (17-59) U/L ALT 172 H (4-49) U/L Alkaline Phosphatase 127 H (38-126) U/L Microbiology - Last 24 Hours (Table) 06/18/21 22:00 Blood Culture - Preliminary Blood No Growth after 96 hours 06/18/21 22:15 Blood Culture - Preliminary Blood No Growth after 96 hours 06/21/21 11:45 Gram Stain - Preliminary Groin Wound Culture - Preliminary Presumptive MRSA Assessment and Plan Assessment: Sepsis Cellulitis of the skin without identifiable abscess of the right buttock and perineum (failed outpatient therapy ) blood cultures - NGTD start on vanco and uansyn monitor vital signs IVF maintenance at 130 cc per hour pain control with opiates tylenol for fever warm compressors ID consultation repeat US of gluteal area to rule out developed/drainable abscess Abdominal Pain, improved Elevated LFTs, improving Tums PRN PPI Pain control as above Abd US with Gallstones, but no evidence of cholecystitis heparin for dvt ppx sc tid anticipated length of stay > 2 midnights anticipated discharge home
[2021-06-23 11:09] LABS: HCT 37.3 % (39.0-53.0); HGB 12.9 gm/dL (13.0-17.5); MCH 29.7 pg (25.0-35.0); MCHC 34.7 g/dL (31.0-37.0); MCV 85.5 fL (80.0-100.0); Mean Platelet Volume 7.5; Platelet Count 225 k/uL (150-450); RBC 4.36 m/uL (4.30-5.90); RDW 13.7 % (11.5-15.5); WBC 9.1 k/uL (3.8-10.6)
[2021-06-23] MEDS: NON FORMULARY DRUG (Finasteride [Finasteride] 1 MG Tablet) PO SCH (12:15)
[2021-06-23 12:32] VITALS: BMI 38.7
[2021-06-23] MEDS: SERTRALINE 100 MG TAB PO SCH (12:40)
--- NOTE | 2021-06-23 13:22 | US ---
EXAMINATION TYPE: US pelvic limited DATE OF EXAM: 06/23/2021 COMPARISON: NONE CLINICAL HISTORY: 55-year-old male right gluteal area, look for drainable abscess. Pt has redness and pain to right gluteal region TECHNIQUE: Fellmongery Worker notes: Right gluteal area scanned at redness and pain. FINDINGS: Fellmongery Worker notes: Soft tissue edema visualized throughout right gluteal subcutaneous adipose layer, only a small loculated fluid visualized 1.5 x 1.6 cm about 1.5 cm from skin surface IMPRESSION: 1. Diffuse induration and edema of the subcutaneous adipose layer. Correlate for synovitis. 2. There is a small 1.6 cm fluid locule, possible abscess here, located 1.5 cm deep to the skin surfa ce.
[2021-06-23 14:43] LABS: Band Neutrophils % 8 %; Basophils # (M) 0.09 k/uL (0-0.2); Eosinophils # (M) 0.09 k/uL (0-0.7); Lymphocytes # (M) 1.18 k/uL (1.0-4.8); Metamyelocytes # (M) 0.36 k/uL (0); Metamyelocytes % 4 %; Monocytes # (M) 0.55 k/uL (0-1.0); Myelocytes # (M) 0.55 k/uL (0); Myelocytes % 6 %; Neutrophils % (M) 63 %; Nucleated Red Blood Cells 0 /100 WBC (0-0); Total Cells Counted 200
--- NOTE | 2021-06-23 15:59 | P.GSCN ---
History of Present Illness Consult date: 06/23/21 History of present illness: CHIEF COMPLAINT: Right gluteal abscess HISTORY OF PRESENT ILLNESS: This is a 55-year-old male who presents to the hospital with complaints of swelling, redness of the right buttocks. He is had minimal drainage from the buttocks. He also has a small ulcer noted in the suprapubic area. This is draining. Patient has been placed on IV antibiotics. He reports improvement in the abscess of the right gluteal and ulceration in the suprapubic area. Patient denies any fever chills or sweats. Denies any nausea or vomiting. Denies any prior history of MRSA or diabetes. He's had these abscesses for about one week. Currently denies any abdominal pain. Surgical service has been consult is in regards to right gluteal abscess. There were concerns that it may have been worsening yesterday and ultrasound was completed showing a 1.6 cm gluteal abscess. Culture with MRSA. Patient denies any abdominal pain. PAST MEDICAL HISTORY: Hyperlipidemia, Hypertension PAST SURGICAL HISTORY: Hernia Repair, Orthopedic Surgery MEDICATIONS: See list. ALLERGIES: See list. SOCIAL HISTORY: No illicit drug use. REVIEW OF SYSTEMS: CONSTITUTIONAL: Denies fever or chills. HEENT: Denies blurred vision, vision changes, or eye pain. Denies hemoptysis CARDIOVASCULAR: Denies chest pain or pressure. RESPIRATORY: No shortness of breath. GASTROINTESTINAL: Denies any nausea or vomiting. Denies any change in bowel h abits HEMATOLOGIC: Denies bleeding disorders. GENITOURINARY: Denies any blood in urine or increased urinary frequency. SKIN: Denies pruitis. Denies rash. PHYSICAL EXAM: VITAL SIGNS: Reviewed GENERAL: Well-developed in no acute distress. HEENT: No sclera icterus. Extraocular movements grossly intact. Moist buccal mucosa. Head is atraumatic, normocephalic. No nasal drainage. ABDOMEN: Soft. Nondistended. Nontender NEUROLOGIC: Alert and oriented. Cranial nerves II through XII grossly intact. Skin: Right gluteus area of induration about 4 cm in length x 2 cm in width. Minimal yellowish drainage on dressing. No erythema. LABORATORY DATA: WBC 15.9 up 18.0 now normalized at 9.1 hemoglobin 12.9 platelets 225 Sodium 139 potassium 4.3 creatinine 0.92 AST 98 ALT 72 alk phos 127 Wound culture positive for MRSA IMAGING: Computed tomography scan abdomen and pelvis inflammatory changes in the subcutaneous tissue of the right buttocks with thickening. This is consistent with cellulitis and phlegmon. No drainable fluid collection seen. No acute abdomen with and pelvis and abdomen. Cholelithiasis. Splenomegaly. Abdominal ultrasound uncomplicated cholelithiasis. Fatty liver Pelvic ultrasound diffuse induration and edema of the subcutaneous adipose layer. Correlate for synovitis. There is a small 1.6 cm fluid locules, possible abscess, loculated 1.5 cm deep to the skin surface. ASSESSMENT: 1. Right gluteal abscess 2. Asymptomatic cholelithiasis PLAN: -Continue IV antibiotics -No surgical intervention planned -Continue supportive care Thank you for this consultation Physician Human Resources Assistant Manager note has been reviewed by physician. Signing provider agrees with the documented findings, assessment, and plan of care. Past Medical History Past Medical History: Hyperlipidemia, Hypertension History of Any Multi-Drug Resistant Organisms: MRSA Year Discovered:: 06/21/21 MDRO Source:: MRSA GROIN Past Surgical History: Hernia Repair, Orthopedic Surgery Past Psychological History: No Psychological Hx Reported Smoking Status: Former smoker Past Alcohol Use History: Occasional Past Drug Use History: None Reported - Past Family History family Family Medical History: No Reported History Medications and Allergies Home Medications Medication Instructions Recorded Confirmed Type Finasteride 1 mg PO DAILY 06/19/21 06/19/21 History Losartan Potassium [Cozaar] 25 mg PO DAILY 06/19/21 06/19/21 History Magnesium 250 mg PO DAILY 06/19/21 06/19/21 History Multivitamins, Thera [Multivitamin 1 tab PO DAILY 06/19/21 06/19/21 History (formulary)] Omeprazole 20 mg PO DAILY 06/19/21 06/19/21 History Pravastatin Sodium [Pravachol] 20 mg PO HS 06/19/21 06/19/21 History Pravastatin Sodium [Pravachol] 40 mg PO HS 06/19/21 06/19/21 History Sertraline HCl [Zoloft] 100 mg PO DAILY 06/19/21 06/19/21 History hydroCHLOROthiazide [Hydrodiuril] 25 mg PO DAILY 06/19/21 06/19/21 History Allergies Allergy/AdvReac Type Severity Reaction Status Date / Time No Known Allergies Allergy Verified 06/19/21 08:14 Surgical - Exam Vital Signs Temp Pulse Resp BP Pulse Ox 99.9 F H 113 H 20 147/82 94 L 06/18/21 19:38 06/18/21 19:38 06/18/21 19:38 06/18/21 19:38 06/18/21 19:38 Results - Labs 06/23/21 09:43 06/23/21 09:43 Abnormal Lab Results - Last 24 Hours (Table) 06/23/21 06/23/21 Range/Units 09:43 09:43 Hgb 12.9 L (13.0-17.5) gm/dL Hct 37.3 L (39.0-53.0) % Metamyelocytes # (Man) 0.36 H (0) k/uL Myelocytes # (Manual) 0.55 H (0) k/uL AST 98 H (17-59) U/L ALT 172 H (4-49) U/L Alkaline Phosphatase 127 H (38-126) U/L Microbiology - Last 24 Hours (Table) 06/21/21 11:45 Gram Stain - Final Groin Wound Culture - Final Methicillin resist S. aureus 06/18/21 22:00 Blood Culture - Preliminary Blood No Growth after 96 hours 06/18/21 22:15 Blood Culture - Preliminary Blood No Growth after 96 hours Diabetes panel 06/23/21 Range/Units 09:43 Sodium 139 (137-145) mmol/L Potassium 4.3 (3.5-5.1) mmol/L Chloride 105 (98-107) mmol/L Carbon Dioxide 25 (22-30) mmol/L BUN 10 (9-20) mg/dL Creatinine 0.92 (0.66-1.25) mg/dL Glucose 93 (74-99) mg/dL Calcium 8.4 (8.4-10.2) mg/dL AST 98 H (17-59) U/L ALT 172 H (4-49) U/L Alkaline Phosphatase 127 H (38-126) U/L Total Protein 6.5 (6.3-8.2) g/dL Albumin 3.5 (3.5-5.0) g/dL Calcium panel 06/23/21 Range/Units 09:43 Calcium 8.4 (8.4-10.2) mg/dL Albumin 3.5 (3.5-5.0) g/dL Pituitary panel 06/23/21 Range/Units 09:43 Sodium 139 (137-145) mmol/L Potassium 4.3 (3.5-5.1) mmol/L Chloride 105 (98-107) mmol/L Carbon Dioxide 25 (22-30) mmol/L BUN 10 (9-20) mg/dL Creatinine 0.92 (0.66-1.25) mg/dL Glucose 93 (74-99) mg/dL Calcium 8.4 (8.4-10.2) mg/dL Adrenal panel 06/23/21 Range/Units 09:43 Sodium 139 (137-145) mmol/L Potassium 4.3 (3.5-5.1) mmol/L Chloride 105 (98-107) mmol/L Carbon Dioxide 25 (22-30) mmol/L BUN 10 (9-20) mg/dL Creatinine 0.92 (0.66-1.25) mg/dL Glucose 93 (74-99) mg/dL Calcium 8.4 (8.4-10.2) mg/dL Total Bilirubin 0.6 (0.2-1.3) mg/dL AST 98 H (17-59) U/L ALT 172 H (4-49) U/L Alkaline Phosphatase 127 H (38-126) U/L Total Protein 6.5 (6.3-8.2) g/dL Albumin 3.5 (3.5-5.0) g/dL
[2021-06-23] MEDS: PRAVASTATIN SODIUM 20 MG TAB PO SCH (21:37)
[2021-06-23] MEDS: PRAVASTATIN SODIUM 40 MG TAB PO SCH (21:37)
[2021-06-24] MEDS: HEPARIN SODIUM,PORCINE/PF 5,000 UNIT/0.5 ML SYRINGE SQ SCH ×2 (00:06→07:53)
[2021-06-24] MEDS: VANCOMYCIN 2,000 MG in SODIUM CHLORIDE 0.9% 500 ML 500 ML IVPB SCH (00:06)
--- NOTE | 2021-06-24 01:39 | PN ---
PROGRESS NOTE DATE OF SERVICE: 06/23/2021 REASON FOR FOLLOW UP: Abdominal and right gluteal abscess cellulitis. INTERVAL HISTORY: The patient is afebrile. The patient is breathing comfortably. Patient denies having any chest pain. No shortness of breath or cough. Some discomfort to the right gluteal area but no drainage. PHYSICAL EXAMINATION: Blood pressure 136/79, pulse of 72, temperature 97.8. He is 94% on room air. General description is a middle-aged male lying in bed in no distress. Respiratory system: Unlabored breathing, clear to auscultation anteriorly. Heart S1, S2 regular rate and rhythm. Abdomen soft, no tenderness. Right gluteal induration has decreased. LABS: Hemoglobin is 12.9, white count 9.1. Ultrasound is now showing possible small DIAGNOSTIC IMPRESSION AND PLAN: Patient with right gluteal and abdominal wall abscess and cellulitis. Did have significant improvement to the abdominal wall and right gluteal induration has decreased. However, ultrasound is suspicious for small abscess for which General Surgery has been consulted. Continue with vancomycin and monitor clinical course closely. MMODL / IJN: [id number] /
[2021-06-24] MEDS: SODIUM CHLORIDE 0.9% 1,000 ML IV SCH ×2 (02:27→10:59)
[2021-06-24] MEDS: IBUPROFEN 400 MG TAB PO PRN (05:19)
[2021-06-24 06:03] LABS: African American GFR (CKD) >90 (>60 ml/min/1.73 sqM); Anion Gap 7 mmol/L; Blood Urea Nitrogen 11 mg/dL (9-20); Calcium 8.3 mg/dL (8.4-10.2); Carbon Dioxide 25 mmol/L (22-30); Chloride 106 mmol/L (98-107); Glucose 103 mg/dL (74-99); Magnesium 1.9 mg/dL (1.6-2.3); Non-African American GFR(CKD) 87 (>60 ml/min/1.73 sqM); Potassium 4.3 mmol/L (3.5-5.1); Sodium 138 mmol/L (137-145)
[2021-06-24] MEDS: hydroCHLOROthiazide 25 MG TAB PO SCH (07:54)
[2021-06-24] MEDS: PRAVASTATIN SODIUM 40 MG TAB PO SCH (07:54)
[2021-06-24] MEDS: SERTRALINE 100 MG TAB PO SCH (07:55)
[2021-06-24] MEDS: PANTOPRAZOLE 40 MG TABLET PO SCH (07:55)
[2021-06-24] MEDS: LOSARTAN 25 MG TAB PO SCH (07:55)
[2021-06-24 09:33] LABS: HCT 35.1 % (39.6-50.0); HGB 11.4 g/dL (13.0-17.0); MCH 28.4 pg (27.0-32.0); MCHC 32.5 g/dL (32.0-37.0); MCV 87.3 fL (80.0-97.0); Platelet Count 197 X 10*3/uL (140-440); RBC 4.02 X 10*6/uL (4.40-5.60); RDW 13.2 % (11.5-14.5); WBC 8.12 X 10*3/uL (4.50-10.00)
[2021-06-24] MEDS: NON FORMULARY DRUG (Finasteride [Finasteride] 1 MG Tablet) PO SCH (10:19)
[2021-06-24 11:20] LABS: Basophils # (M) 0.08 X 10*3/uL (0.00-0.10); Eosinophils # (M) 0.24 X 10*3/uL (0.04-0.35); Lymphocytes # (M) 0.89 X 10*3/uL (0.90-5.00); Metamyelocytes % 5 % (0-0); Monocytes # (M) 0.41 X 10*3/uL (0.20-1.00); Myelocytes % 10 % (0-0); Neutrophils # (M) 5.28 X 10*3/uL (2.00-8.90); Neutrophils % (M) 65 %
--- NOTE | 2021-06-24 14:52 | P.PN ---
Subjective Progress Note Date: 06/24/21 CHIEF COMPLAINT: Right gluteal abscess HISTORY OF PRESENT ILLNESS: Surgical service is following in regards to patient's frequent abscess. Patient has been improving with antibiotics. His pain is controlled. Denies any nausea or vomiting. Area of induration continues to decrease in size. Afebrile. PHYSICAL EXAM: VITAL SIGNS: Reviewed. GENERAL: Well-developed in no acute distress. HEENT: No sclera icterus. Extraocular movements grossly intact. Moist buccal mucosa. Head is atraumatic, normocephalic. ABDOMEN: Soft. Nondistended. Nontender. NEUROLOGIC: Alert and oriented. Cranial nerves II through XII grossly intact. Skin: Right gluteal area of induration continues to decrease in size. No erythema. ASSESSMENT: 1. Right gluteal abscess 2. Asymptomatic cholelithiasis PLAN: -Patient can be discharged from surgical standpoint with antibiotics -Antibiotic recommendations per ID -No surgical intervention planned -Continue supportive care -Continue warm compresses Physician Deputy Treasurer note has been reviewed by physician. Signing provider agrees with the documented findings, assessment, and plan of care. Objective - Vital Signs Vital signs: Vital Signs Temp 98.1 F 06/24/21 08:00 Pulse 68 06/24/21 08:00 Resp 18 06/24/21 08:00 BP 107/68 06/24/21 08:00 Pulse Ox 94 L 06/24/21 08:00 Intake & Output 06/23/21 06/24/21 06/24/21 18:59 06:59 18:59 Intake Total 120 Balance 120 Weight 108.862 kg Intake: Oral 120 Other: Voiding Method Toilet Toilet # Voids 1 2 # Bowel Movements 1 - Labs CBC & Chem 7: 06/24/21 05:02 06/24/21 05:02 Labs: Abnormal Lab Results - Last 24 Hours (Table) 06/24/21 06/24/21 Range/Units 05:02 05:02 RBC 4.02 L (4.40-5.60) X 10*6/uL Hgb 11.4 L (13.0-17.0) g/dL Hct 35.1 L (39.6-50.0) % Absolute Nucleated RBC 0.03 H (0.00-0.00) X 10*3/uL Metamyelocytes % 5 H (0-0) % Myelocytes % 10 H (0-0) % Lymphocytes # (Manual) 0.89 L (0.90-5.00) X 10*3/uL NRBC/100 WBC Diff 0.4 H (0.0-0.0) /100 WBCS Glucose 103 H (74-99) mg/dL Calcium 8.3 L (8.4-10.2) mg/dL Microbiology - Last 24 Hours (Table) 06/18/21 22:00 Blood Culture - Preliminary Blood No Growth after 120 hours 06/18/21 22:15 Blood Culture - Preliminary Blood No Growth after 120 hours 06/21/21 11:45 Gram Stain - Final Groin Wound Culture - Final Methicillin resist S. aureus
[2021-06-24 15:36] VITALS: BP 143/83; PULSE 66; RESP 16; TEMP 98.2
--- NOTE | 2021-06-24 16:12 | PN ---
PROGRESS NOTE DATE OF SERVICE: 06/24/2021. REASON FOR FOLLOW UP: Abdominal wound and right gluteal abscess cellulitis secondary MRSA. INTERVAL HISTORY: Patient is afebrile. The patient is breathing comfortably. Patient denies having any chest pain, shortness of breath or cough. The abdominal wall and right gluteal pain and swelling has decreased. No drainage. PHYSICAL EXAMINATION: Blood pressure 107/68 with a pulse of 73, temperature 98.1. He is 94% on room air. General description is a middle-aged male lying in bed in no distress. Respiratory system: Unlabored breathing, clear to auscultation anteriorly. Heart S1, S2. Regular rate and rhythm. Abdomen soft, no tenderness. Right gluteal swelling and induration decreased. LABS: Hemoglobin 11.8, white count 8.1. BUN of 11, creatinine 0.97. DIAGNOSTIC IMPRESSION AND PLAN: Patient with abdominal wall and right gluteal cellulitis, abdominal wall has shown much improvement as well as right gluteal area. Ultrasound revealed small abscess, surgical team recommending continue medical therapy. The patient is feeling better and wants to go home. Antibiotic was switched over to Bactrim DS one twice a day for 10 days. The patient is on and his potassium needs to be checked closely in the outpatient setting while on Bactrim DS. The patient advised if any worsening pain and swelling to the gluteal area or any worsening effusion, to left us know right away. Continue supportive care. MMSHILPAL / LESLEYN: [id number] /
--- NOTE | 2021-06-24 16:56 | P.DS ---
Providers Date of admission: 06/21/21 13:13 Attending physician: Vale Newsome MD Consults: 06/19/21 00:28 Consult Physician Routine Consulting Provider: Rico Alexander Consult Reason/Comments: Gluteal cellulitis Do you want consulting provider notified?: Yes 06/23/21 14:39 Consult Physician Routine Consulting Provider: Satya Bales Consult Reason/Comments: gluteal 1.6cm abscess Do you want consulting provider notified?: Yes Primary care physician: Physician Nonstaff - Discharge Diagnosis(es) (1) Cellulitis, gluteal, right Status: Acute Priority: High Hospital Course: Patient was admitted with sepsis secondary to cellulitis and abscess of the right buttock and perineum. He had failed outpatient therapy but he had only one dose of Doxycycline and Keflex before the pain worsened and presented to the ED. He was started on vancomycin and Zosyn. Abscess cultures revealed MRSA, Zosyn was discontinued, Vanco resumed for the duration of the hospitalization which was 3 days. by the 3rd day, his pain had completely resolved, he had been afebrile with normal vital signs, leukocytosis had resolved. He was eventually discharged home with oral Bactrim DS twice a day. Recommend follow-up with PCP and infectious disease in 1-2 weeks Gen: awake, alert, in NAD HEENT: normocephalic, atraumatic,moist mucous membranes Resp: good air exchange, breathing comfortably with no accessory muscle use CVS: Regular rate and rhythm, no murmurs good distal perfusion x 4 GI: soft, nontender nondistended MSK: no pitting edema, no clubbing Skin: Right gluteal area of induration, no tenderness to palpation No erythema. Neuro: non-focal, moving all extremities Patient Condition at Discharge: Good Plan - Discharge Summary Discharge Rx Participant: Yes New Discharge Prescriptions: New Sulfamethox-Tmp 800-160Mg [Bactrim DS 800-160 mg] 1 tab PO Q12HR 5 Days #10 tab Ibuprofen [Motrin] 400 mg PO Q6HR PRN tab PRN Reason: Mild Pain Or Fever > 100.5 Acetaminophen Tab [Tylenol] 650 mg PO Q6HR PRN tab PRN Reason: Mild Pain Or Fever > 100.5 Calcium Carbonate [Tums] 1,000 mg PO QID PRN tab PRN Reason: Heartburn Continue Omeprazole 20 mg PO DAILY Losartan Potassium [Cozaar] 25 mg PO DAILY Sertraline HCl [Zoloft] 100 mg PO DAILY Multivitamins, Thera [Multivitamin (formulary)] 1 tab PO DAILY Magnesium 250 mg PO DAILY Pravastatin Sodium [Pravachol] 40 mg PO HS hydroCHLOROthiazide [Hydrodiuril] 25 mg PO DAILY Finasteride 1 mg PO DAILY Discontinued Pravastatin Sodium [Pravachol] 20 mg PO HS Discharge Medication List Finasteride 1 mg PO DAILY 06/19/21 [History] Losartan Potassium [Cozaar] 25 mg PO DAILY 06/19/21 [History] Magnesium 250 mg PO DAILY 06/19/21 [History] Multivitamins, Thera [Multivitamin (formulary)] 1 tab PO DAILY 06/19/21 [History] Omeprazole 20 mg PO DAILY 06/19/21 [History] Pravastatin Sodium [Pravachol] 40 mg PO HS 06/19/21 [History] Sertraline HCl [Zoloft] 100 mg PO DAILY 06/19/21 [History] hydroCHLOROthiazide [Hydrodiuril] 25 mg PO DAILY 06/19/21 [History] Acetaminophen Tab [Tylenol] 650 mg PO Q6HR PRN tab 06/24/21 [Rx] Calcium Carbonate [Tums] 1,000 mg PO QID PRN tab 06/24/21 [Rx] Ibuprofen [Motrin] 400 mg PO Q6HR PRN tab 06/24/21 [Rx] Sulfamethox-Tmp 800-160Mg [Bactrim DS 800-160 mg] 1 tab PO Q12HR 5 Days #10 tab 06/24/21 [Rx] Follow up Appointment(s)/Referral(s): Nonstaff,Physician [Primary Care Provider] - 1-2 days Rico Alexander MD [STAFF PHYSICIAN] - 1 Week Patient Instructions/Handouts: MRSA (Methicillin-Resistant Staphylococcus Aureus) (GEN), Cellulitis (GEN), Abscess (GEN) Discharge/Stand Alone Forms: Work/School Release / Restrict Discharge Disposition: HOME SELF-CARE
== END 2021-06-24 15:52 | disposition home or self-care (01) | DRG 872 ==
LOC: EC 19:28 → 6NMEDSUR 06-19 02:44 → OBSVTOIN 06-21 13:13
PROVIDERS: ADMIT Internal Medicine; ATTEND Internal Medicine
DX: A41.02 Sepsis due to Methicillin resistant Staphylococcus aureus (principal); L03.317 Cellulitis of buttock; L03.315 Cellulitis of perineum; L02.31 Cutaneous abscess of buttock; L03.311 Cellulitis of abdominal wall; L02.211 Cutaneous abscess of abdominal wall; E78.5 Hyperlipidemia, unspecified; I10 Essential (primary) hypertension; K80.20 Calculus of gallbladder without cholecystitis without obstruction; Z87.891 Personal history of nicotine dependence; Z98.890 Other specified postprocedural states; Z79.899 Other long term (current) drug therapy; Z86.14 Personal history of Methicillin resistant Staphylococcus aureus infection
CPT/HCPCS: 36415; 72170; 74022; 74177; 76700; 76857; 80048; 80053; 80076; 80202; 82550; 82565; 83605; 83735; 85025; 86140; 87040; 87070; 87077; 87186; 87205; 87635; 96365; 96366; 96375; 99284

== ENCOUNTER 2021-09-13 07:55 | Day surgery (SDC) | payer OTHER ==
[2021-09-09 15:40] VITALS: BMI 38.7
[~2021-09-13 07:55] MED LIST: LACTATED RINGERS 1,000 ML IV SCH; LIDOCAINE 1% (10MG/ML) FOR IV START INTRADERMA PRN
[2021-09-13 08:37] VITALS: TEMP 97.5
[2021-09-13] MEDS ORDERED: PROPOFOL 10 MG/ML 20 ML VIAL IV ONE (08:54)
--- NOTE | 2021-09-13 09:06 | P.PCN ---
Date of Procedure: 09/13/21 Procedure(s) Performed: BRIEF HISTORY: Patient is a 55-year-old pleasant male scheduled for an elective colonoscopy as a part of screening for colorectal neoplasia. PROCEDURE PERFORMED: Colonoscopy with biopsy. PREOPERATIVE DIAGNOSIS: Screening for colon cancer. IV sedation per Anesthesia. PROCEDURE: After informed consent was obtained, the patient, was brought into the endoscopy unit. IV sedation was administered by Anesthesia under continuous monitoring. Digital rectal examination was normal. Initially the Olympus CF-160 flexible video colonoscope was then inserted in the rectum, gradually advanced into the cecum without any difficulty. Careful examination was performed as the scope was gradually being withdrawn. Ileocecal valve and the appendiceal orifice were visualized and appeared normal. Prep was excellent. Mucosa of the cecum, ascending colon, appeared normal. In the transverse colon there was a 3-4 mm sessile polyp that was removed by cold biopsy. Rest of the transverse colon, descending colon, sigmoid colon, and rectum appeared normal. Scattered left sided diverticulosis seen. Retroflexion was performed in the rectum and no lesions were seen. The patient tolerated the procedure well. IMPRESSION: 3-4 mm sessile transverse colon polyp status post cold biopsy Scattered left sided diverticulosis RECOMMENDATIONS: Findings of this examination were discussed with the patient as well as his family. He was advised to follow with the biopsy results. If the biopsy reveals adenoma he can have a repeat colonoscopy in 5 years.
[2021-09-13 09:46] VITALS: BP 119/78; PULSE 73; RESP 16
== END 2021-09-13 10:19 | disposition home or self-care (01) ==
LOC: ORWHC2ENDO 07:55
PROVIDERS: ATTEND Internal Medicine Gastroenterology
DX: Z12.11 Encounter for screening for malignant neoplasm of colon (principal); D12.3 Benign neoplasm of transverse colon; K57.90 Diverticulosis of intestine, part unspecified, without perforation or abscess without bleeding
CPT/HCPCS: 45380; J2704

== ENCOUNTER 2021-09-13 10:26 | Emergency (ER) | payer OTHER ==
[2021-09-13 10:44] VITALS: TEMP 97.9
--- NOTE | 2021-09-13 11:25 | ED ---
General Adult HPI - General Chief complaint: Skin/Abscess/Foreign Body Stated complaint: possible cellulitis Time Seen by Provider: 09/13/21 11:12 Source: patient, family, RN notes reviewed, old records reviewed Mode of arrival: ambulatory Limitations: no limitations - History of Present Illness Initial comments: This is a well-appearing 55-year-old male, alert and oriented 4, presents to the emergency room with family member. He is complaining of 1 week of left lower abdominal abscess. Patient states it is draining at home. He denies any fevers. He did have a colonoscopy this morning and was told to come to the emergency room for evaluation of the wound. He does have a history of cellulitis with MRSA. Also has a history of hypertension and osteoarthritis. -: week(s) (1) Severity scale (1-10): 0 Consistency: intermittent Worsens with: other (palpation) Associated Symptoms: denies other symptoms Treatments Prior to Arrival: none - Related Data Home Medications Medication Instructions Recorded Confirmed Finasteride 1 mg PO DAILY 06/19/21 09/13/21 Losartan Potassium [Cozaar] 25 mg PO DAILY 06/19/21 09/13/21 Magnesium 250 mg PO DAILY 06/19/21 09/13/21 Multivitamins, Thera [Multivitamin 1 tab PO DAILY 06/19/21 09/09/21 (formulary)] Omeprazole 20 mg PO DAILY 06/19/21 09/13/21 Pravastatin Sodium [Pravachol] 40 mg PO HS 06/19/21 09/13/21 hydroCHLOROthiazide [Hydrodiuril] 25 mg PO DAILY 06/19/21 09/13/21 Pravastatin Sodium [Pravachol] 20 mg PO HS 09/09/21 09/13/21 Sertraline HCl 150 mg PO HS 09/09/21 09/13/21 Previous Rx's Medication Instructions Recorded Sulfamethox-Tmp 800-160Mg [Bactrim 1 each PO Q12HR 7 Days #14 tab 09/13/21 Ds] Allergies Allergy/AdvReac Type Severity Reaction Status Date / Time No Known Allergies Allergy Verified 09/13/21 10:45 Review of Systems ROS Statement: Those systems with pertinent positive or pertinent negative responses have been documented in the HPI. ROS Other: All systems not noted in ROS Statement are negative. Past Medical History Past Medical History: Hyperlipidemia, Hypertension, Osteoarthritis (OA), Sleep Apnea/CPAP/BIPAP Additional Past Medical History / Comment(s): migraines, History of Any Multi-Drug Resistant Organisms: MRSA Date of last positivie culture/infection: 06/21/21 MDRO Source:: MRSA GROIN Past Surgical History: Hernia Repair, Orthopedic Surgery Additional Past Surgical History / Comment(s): rt knee ACL repair, left shoulder rotator cuff, Past Anesthesia/Blood Transfusion Reactions: No Reported Reaction Past Psychological History: Anxiety, Depression Smoking Status: Former smoker Past Alcohol Use History: Occasional Past Drug Use History: None Reported - Past Family History Mother Family Medical History: Cancer family Family Medical History: No Reported History General Exam Limitations: no limitations General appearance: alert, in no apparent distress Head exam: Present: atraumatic, normocephalic, normal inspection Eye exam: Present: normal appearance, EOMI. Absent: scleral icterus, conjunctival injection, periorbital swelling ENT exam: Present: normal exam, normal oropharynx, mucous membranes moist Neck exam: Present: normal inspection, full ROM. Absent: tenderness, meningismus, lymphadenopathy, thyromegaly Respiratory exam: Present: normal lung sounds bilaterally. Absent: respiratory distress, wheezes, rales, rhonchi, stridor Cardiovascular Exam: Present: regular rate, normal rhythm, normal heart sounds. Absent: systolic murmur, diastolic murmur, rubs, gallop, clicks GI/Abdominal exam: Present: soft, tenderness (Left lower abdomen. Induration and erythema 6 cm x 4 cm with a 0.5 cm round open lesion), normal bowel sounds. Absent: distended, guarding, rebound, rigid Extremities exam: Present: full ROM, normal capillary refill. Absent: tenderness, pedal edema, joint swelling, calf tenderness Back exam: Present: normal inspection, full ROM. Absent: tenderness, CVA tenderness (R), CVA tenderness (L), rash noted Neurological exam: Present: alert, oriented X3 Psychiatric exam: Present: normal affect, normal mood Skin exam: Present: warm, dry, intact, normal color, erythema (Left lower abdomen cellulitis and abscess). Absent: rash Course Vital Signs 09/13/21 09/13/21 10:39 12:02 Temperature 97.9 F Pulse Rate 68 79 Respiratory 19 18 Rate Blood Pressure 129/82 142/79 O2 Sat by Pulse 95 99 Oximetry Medical Decision Making - Medical Decision Making 55-year-old male that presents to the emergency room with an abscess to the left lower abdomen for one week. Patient states it is draining. There is a surrounding area of erythema presently 6 cm x 4 cm outlined with a skin marker. He does have a history of MRSA in May of this year. He denies any fevers, nausea vomiting or diarrhea. He did have a colonoscopy today and was told to come to the emergency room for evaluation of cellulitis. He'll be placed on antibiotics directed to follow up with his primary care doctor, return to emergency room with any new or worsening symptoms. Case discussed with Dr. Mckee Disposition Clinical Impression: Cellulitis of left abdominal wall Disposition: HOME SELF-CARE Condition: Good Instructions (If sedation given, give patient instructions): Cellulitis (ED) Additional Instructions: Take antibiotics as prescribed and follow-up with primary care doctor this week. Warm moist compresses twice a day to promote drainage. Return to the emergency room with any new or worsening symptoms. Prescriptions: Sulfamethox-Tmp 800-160Mg [Bactrim Ds] 1 each PO Q12HR 7 Days #14 tab Is patient prescribed a controlled substance at d/c from ED?: No Referrals: Angela Beckwith DO [Primary Care Provider] - 1-2 days Time of Disposition: 11:25
[2021-09-13] MEDS ORDERED: SULFAMETHOX-TMP 800-160MG 1 EACH TAB PO STA (11:31)
[2021-09-13 12:03] VITALS: BP 142/79; PULSE 79; RESP 18
== END 2021-09-13 12:03 | disposition home or self-care (01) ==
LOC: EC 10:26
DX: L03.311 Cellulitis of abdominal wall (principal); E78.5 Hyperlipidemia, unspecified; I10 Essential (primary) hypertension; M19.90 Unspecified osteoarthritis, unspecified site; G43.909 Migraine, unspecified, not intractable, without status migrainosus; F41.9 Anxiety disorder, unspecified; F32.A Depression, unspecified; Z87.891 Personal history of nicotine dependence; Z72.89 Other problems related to lifestyle
CPT/HCPCS: 87070; 87077; 87186; 87205; 99282

== ENCOUNTER 2021-11-03 11:57 | Emergency (ER) | payer OTHER ==
[2021-11-03 12:11] VITALS: RESP 18
[2021-11-03 14:56] LABS: Basophils % (A) 0 %; Eosinophils # (A) 0.1 k/uL (0-0.7); Eosinophils % (A) 1 %; HCT 43.8 % (39.0-53.0); HGB 15.5 gm/dL (13.0-17.5); Lymphocytes # (A) 1.3 k/uL (1.0-4.8); Lymphocytes % (A) 14 %; MCHC 35.4 g/dL (31.0-37.0); MCV 84.7 fL (80.0-100.0); Mean Platelet Volume 7.5; Monocytes # (A) 0.7 k/uL (0-1.0); Monocytes % (A) 7 %; Neutrophils # (A) 7.5 k/uL (1.3-7.7); Neutrophils % (A) 77 %; Platelet Count 131 k/uL (150-450); RBC 5.17 m/uL (4.30-5.90); RDW 14.6 % (11.5-15.5); WBC 9.8 k/uL (3.8-10.6)
[2021-11-03 15:16] LABS: ALT 36 U/L (4-49); AST 28 U/L (17-59); African American GFR (CKD) >90 (>60 ml/min/1.73 sqM); Albumin 4.7 g/dL (3.5-5.0); Alkaline Phosphatase 86 U/L (38-126); Anion Gap 12 mmol/L; Blood Urea Nitrogen 18 mg/dL (9-20); Calcium 9.4 mg/dL (8.4-10.2); Carbon Dioxide 23 mmol/L (22-30); Chloride 100 mmol/L (98-107); Glucose 107 mg/dL (74-99); Non-African American GFR(CKD) >90 (>60 ml/min/1.73 sqM); Potassium 3.8 mmol/L (3.5-5.1); Sodium 135 mmol/L (137-145); Total Bilirubin 1.4 mg/dL (0.2-1.3); Total Protein 7.9 g/dL (6.3-8.2)
[2021-11-03] MEDS ORDERED: LIDOCAINE 1% INJ 10MG/ML (20 ML MDV) SQ ONE (15:24)
[2021-11-03] MEDS ORDERED: SULFAMETHOX-TMP 800-160MG 1 EACH TAB PO STA (15:28)
[2021-11-03] MEDS ORDERED: cefTRIAXone IN SWFI 1,000 MG/10 ML SYRINGE IVP STA (15:34)
--- NOTE | 2021-11-03 16:17 | ED ---
General Adult HPI - General Chief complaint: Skin/Abscess/Foreign Body Stated complaint: Sore on buttocks Time Seen by Provider: 11/03/21 13:06 Source: patient, RN notes reviewed Mode of arrival: ambulatory Limitations: no limitations - History of Present Illness Initial comments: 55-year-old male presents to the emergency department for evaluation of sore on his buttock. Patient reports he had a similar experience approximately 4 months ago in which she required hospitalization and IV antibiotics. Patient states his previous infection had a extensive surrounding cellulitis, however states this present wound began last night and he is attempting to treat it sooner rather than later. Patient states he has had drainage throughout the day from t he wound which is located near the anal opening on the right buttock. States he had a slightly elevated temperature last night at 100.0 and took Motrin with improvement. Denies back or pelvic pain; no worsening pain with defecation or blood in stool. - Related Data Home Medications Medication Instructions Recorded Confirmed Finasteride 1 mg PO DAILY 06/19/21 09/13/21 Losartan Potassium [Cozaar] 25 mg PO DAILY 06/19/21 09/13/21 Magnesium 250 mg PO DAILY 06/19/21 09/13/21 Multivitamins, Thera [Multivitamin 1 tab PO DAILY 06/19/21 09/09/21 (formulary)] Omeprazole 20 mg PO DAILY 06/19/21 09/13/21 Pravastatin Sodium [Pravachol] 40 mg PO HS 06/19/21 09/13/21 hydroCHLOROthiazide [Hydrodiuril] 25 mg PO DAILY 06/19/21 09/13/21 Pravastatin Sodium [Pravachol] 20 mg PO HS 09/09/21 09/13/21 Sertraline HCl 150 mg PO HS 09/09/21 09/13/21 Previous Rx's Medication Instructions Recorded Sulfamethox-Tmp 800-160Mg [Bactrim 1 each PO Q12HR 7 Days #14 tab 09/13/21 Ds] Cephalexin [Keflex] 500 mg PO Q8HR 10 Days #30 cap 11/03/21 Sulfamethox-Tmp 800-160Mg [Bactrim 1 tab PO Q12HR 10 Days #20 tab 11/03/21 DS 800-160 mg] Allergies Allergy/AdvReac Type Severity Reaction Status Date / Time No Known Allergies Allergy Verified 11/03/21 12:11 Review of Systems ROS Statement: Those systems with pertinent positive or pertinent negative responses have been documented in the HPI. ROS Other: All systems not noted in ROS Statement are negative. Past Medical History Past Medical History: Hyperlipidemia, Hypertension, Osteoarthritis (OA), Sleep Apnea/CPAP/BIPAP Additional Past Medical History / Comment(s): migraines, History of Any Multi-Drug Resistant Organisms: MRSA Date of last positivie culture/infection: 09/13/21 MDRO Source:: MRSA ABDOMEN Past Surgical History: Hernia Repair, Orthopedic Surgery Additional Past Surgical History / Comment(s): rt knee ACL repair, left shoulder rotator cuff, Past Anesthesia/Blood Transfusion Reactions: No Reported Reaction Past Psychological History: Anxiety, Depression Smoking Status: Former smoker Past Alcohol Use History: Occasional Past Drug Use History: None Reported - Past Family History Mother Family Medical History: Cancer family Family Medical History: No Reported History General Exam Limitations: no limitations (Well-developed, well-nourished male in no acute distress. Initial temperature 98.1, pulse 84, respirations 18, blood pressure 1 3785, pulse ox 96% on room air.) General appearance: alert, in no apparent distress ENT exam: Present: normal exam, normal oropharynx Respiratory exam: Present: normal lung sounds bilaterally. Absent: respiratory distress, wheezes, rales, rhonchi, stridor Cardiovascular Exam: Present: regular rate, normal rhythm, normal heart sounds. Absent: systolic murmur, diastolic murmur, rubs, gallop, clicks GI/Abdominal exam: Present: soft, normal bowel sounds. Absent: distended, tenderness, guarding, rebound, rigid Rectal exam: Present: normal rectal tone, hemorrhoids, other (1 cm x 2 cm localized perianal abscess draining purulent fluid; fluctuant area palpable. Surrounding tissue non-erythematous/non-edematous. KYLE well-tolerated) Back exam: Present: normal inspection. Absent: tenderness Neurological exam: Present: alert, oriented X3, CN II-XII intact Psychiatric exam: Present: normal affect, normal mood Skin exam: Present: warm, dry, intact, normal color. Absent: rash Course Vital Signs 11/03/21 11/03/21 12:08 16:46 Temperature 98.1 F 98.9 F Pulse Rate 84 81 Respiratory 18 18 Rate Blood Pressure 137/85 134/87 O2 Sat by Pulse 96 93 L Oximetry Procedures - Incision & Drainage Consent Obtained: verbal consent Site: buttock (Right buttock near the anal opening) Anesthetic Used: lidocaine 1% Amount (mLs): 2 I&D Cleaning Method: Iodine Sterile Field Used?: Yes Scalpel Used: #11 Needle Aspiration Performed?: No Irrigation Performed?: Yes (Wound was gently probed for loculated area and irrigated with normal saline) I&D Drainage Obtained: Pus, Blood Packing: Plain (Loosely packed) Culture Obtained?: Yes Patient Tolerated Procedure: well, no complications Medical Decision Making - Medical Decision Making 55-year-old male with a past medical history of hypertension, high cholesterol, and recent MRSA infection presents to the emergency department for evaluation of perianal abscess located on the right buttock. Upon exam, patient is well- appearing and in no acute distress. Vital signs are stable. He is afebrile and not tachycardic. Abscess is fluctuant with a small area of drainage. There is no surrounding tissue involvement. KYLE was well tolerated, not producing an unreasonable amount of discomfort. Imaging was deferred as there is low concern for extension into the rectal tissue or fistula formation at this point. Due to patient's recurrent MRSA infections, wound was cultured and blood work was obtained. Laboratory studies were reviewed and were unremarkable. Abscess was incised with moderate amount of purulent drainage. Small amount of packing was placed with lengthy wick; patient and spouse instructed on its removal. He will be started on Bactrim. Instructed on sitz baths regularly and after any bowel movement. Instructed to follow-up with PCP. Return parameters were discussed in detail. Patient verbalizes understanding and agrees with this plan. This patient's care was discussed with my attending . - Lab Data Result diagrams: 11/03/21 14:24 11/03/21 14:24 Lab Results 11/03/21 11/03/21 Range/Units 14:24 14:24 WBC 9.8 (3.8-10.6) k/uL RBC 5.17 (4.30-5.90) m/uL Hgb 15.5 (13.0-17.5) gm/dL Hct 43.8 (39.0-53.0) % MCV 84.7 (80.0-100.0) fL MCH 30.0 (25.0-35.0) pg MCHC 35.4 (31.0-37.0) g/dL RDW 14.6 (11.5-15.5) % Plt Count 131 L (150-450) k/uL MPV 7.5 Neutrophils % 77 % Lymphocytes % 14 % Monocytes % 7 % Eosinophils % 1 % Basophils % 0 % Neutrophils # 7.5 (1.3-7.7) k/uL Lymphocytes # 1.3 (1.0-4.8) k/uL Monocytes # 0.7 (0-1.0) k/uL Eosinophils # 0.1 (0-0.7) k/uL Basophils # 0.0 (0-0.2) k/uL Sodium 135 L (137-145) mmol/L Potassium 3.8 (3.5-5.1) mmol/L Chloride 100 (98-107) mmol/L Carbon Dioxide 23 (22-30) mmol/L Anion Gap 12 mmol/L BUN 18 (9-20) mg/dL Creatinine 0.92 (0.66-1.25) mg/dL Est GFR (CKD-EPI)AfAm >90 (>60 ml/min/1.73 sqM) Est GFR (CKD-EPI)NonAf >90 (>60 ml/min/1.73 sqM) Glucose 107 H (74-99) mg/dL Calcium 9.4 (8.4-10.2) mg/dL Total Bilirubin 1.4 H (0.2-1.3) mg/dL AST 28 (17-59) U/L ALT 36 (4-49) U/L Alkaline Phosphatase 86 (38-126) U/L Total Protein 7.9 (6.3-8.2) g/dL Albumin 4.7 (3.5-5.0) g/dL Disposition Clinical Impression: Perianal abscess Disposition: HOME SELF-CARE Condition: Stable Instructions (If sedation given, give patient instructions): Abscess (ED), Abscess Incision and Drainage (DC) Additional Instructions: Take antibiotic as directed. Alternate Tylenol and Motrin for discomfort. Main complaint warm compress/washcloth to affected area. Leave packing in place for 24 hours if possible. Soak/rinse wound 4 times a day and after any bowel movements. Do your best to keep the wound clean and dry. Call your PCP in the morning to schedule a recheck next week. Return to the emergency department with development of worsening pain, fever, or any new concerns. Prescriptions: Sulfamethox-Tmp 800-160Mg [Bactrim DS 800-160 mg] 1 tab PO Q12HR 10 Days #20 tab Cephalexin [Keflex] 500 mg PO Q8HR 10 Days #30 cap Is patient prescribed a controlled substance at d/c from ED?: No Referrals: Angela Beckwith DO [Primary Care Provider] - 1-2 days Time of Disposition: 16:39
[2021-11-03 16:49] VITALS: BP 134/87; PULSE 81; TEMP 98.9
== END 2021-11-03 16:46 | disposition home or self-care (01) ==
LOC: EC 11:57
DX: K61.0 Anal abscess (principal); I10 Essential (primary) hypertension; E78.5 Hyperlipidemia, unspecified; M19.90 Unspecified osteoarthritis, unspecified site; F32.A Depression, unspecified; F41.9 Anxiety disorder, unspecified; Z87.891 Personal history of nicotine dependence; Z79.899 Other long term (current) drug therapy
CPT/HCPCS: 36415; 80053; 85025; 87070; 87205; 46050; 99283; 96374; J2001; J0696

== ENCOUNTER 2023-02-23 08:41 | Day surgery (SDC) | payer OTHER ==
[2023-02-23 09:05] VITALS: RESP 16; TEMP 97.7
[2023-02-23] MEDS: LACTATED RINGERS 1,000 ML IV SCH ×2 (09:14→09:18)
[2023-02-23] MEDS ORDERED: PROPOFOL 10 MG/ML 20 ML VIAL IV ONE (09:23)
--- NOTE | 2023-02-23 09:39 | P.PCN ---
Date of Procedure: 02/23/23 Procedure(s) Performed: BRIEF HISTORY: Patient is a 57-year-old pleasant white male male scheduled for an elective colonoscopy as a part of value should of intermittent rectal bleeding for the last 1 year duration. PROCEDURE PERFORMED: Colonoscopy with biopsy PREOPERATIVE DIAGNOSIS: Intermittent rectal bleeding of 1 year duration. IV sedation per Anesthesia. PROCEDURE: After informed consent was obtained, the patient, was brought into the endoscopy unit. IV sedation was administered by Anesthesia under continuous monitoring. Digital rectal examination was normal. Initially the Olympus CF-160 flexible video colonoscope was then inserted in the rectum, gradually advanced into the cecum without any difficulty. Careful examination was performed as the scope was gradually being withdrawn. Ileocecal valve and the appendiceal orifice were visualized and appeared normal. Prep was excellent. Mucosa of the cecum, ascending colon, transverse colon, descending colon was normal. The sigmoid: There was a 2 mm sessile polyp that was removed by cold biopsy. Scattered left- sided diverticulosis seen., Rest of the sigmoid colon, and rectum appeared normal. Retroflexion was performed in the rectum and small internal were seen. The patient tolerated the procedure well. IMPRESSION: 2 mm; sigmoid polyp status post cold biopsy Scattered sigmoid diverticulosis Grade 1 internal hemorrhoids RECOMMENDATIONS: Findings of this examination were discussed with the patient as well as his family. He was advised to be a high-fiber diet. He will be given a trial of topical steroids for 2 weeks. Follow with the biopsy results. Recommend repeat colonoscopy in 10 years.
[2023-02-23 10:07] VITALS: BP 143/75; PULSE 72
== END 2023-02-23 10:31 | disposition home or self-care (01) ==
LOC: ORWHC2ENDO 08:41
PROVIDERS: ATTEND Internal Medicine Gastroenterology
DX: K63.5 Polyp of colon (principal); K57.30 Diverticulosis of large intestine without perforation or abscess without bleeding; K64.1 Second degree hemorrhoids; I10 Essential (primary) hypertension; E78.5 Hyperlipidemia, unspecified; G47.33 Obstructive sleep apnea (adult) (pediatric); M19.90 Unspecified osteoarthritis, unspecified site; G43.909 Migraine, unspecified, not intractable, without status migrainosus; Z79.899 Other long term (current) drug therapy; Z99.89 Dependence on other enabling machines and devices
CPT/HCPCS: 88305; 45380; J2704

== ENCOUNTER → 2024-12-29 | Outpatient (CLI) | payer OTHER ==
[2024-12-29 15:06] LABS: Basophils # (A) 0.03 X 10*3/uL (0.00-0.10); Basophils % (A) 0.6 %; Eosinophils # (A) 0.07 X 10*3/uL (0.04-0.35); Eosinophils % (A) 1.3 %; HCT 43.7 % (39.6-50.0); HGB 14.6 g/dL (13.0-17.0); Lymphocytes # (A) 1.11 X 10*3/uL (0.90-5.00); Lymphocytes % (A) 20.7 %; MCH 28.5 pg (27.0-32.0); MCHC 33.4 g/dL (32.0-37.0); MCV 85.2 FL (80.0-97.0); Mean Platelet Volume 10.5 FL (9.5-12.2); Monocytes # (A) 0.44 X 10*3/uL (0.20-1.00); Monocytes % (A) 8.2 %; NRBC Per 100 WBC 0 X 10*3/uL (0.00-0.01); Neutrophils # (A) 3.66 X 10*3/uL (1.80-7.70); Neutrophils % (A) 68.5 %; Platelet Count 143 X 10*3/uL (140-440); RBC 5.13 X 10*6/uL (4.40-5.60); RDW 13.8 % (11.5-14.5); WBC 5.35 X 10*3/uL (4.50-10.00)
[2024-12-29 15:19] LABS: ALT 54 U/L (10-49); AST 49 U/L (14-35); Albumin 4.8 g/dL (3.8-4.9); Albumin/Globulin Ratio 1.71 Ratio (1.60-3.17); Alkaline Phosphatase 81 U/L (41-126); BUN/Creat Ratio 18.73 Ratio (12.00-20.00); Blood Urea Nitrogen 20.6 mg/dL (9.0-27.0); Calcium 9.6 mg/dL (8.7-10.3); Carbon Dioxide 24.2 mmol/L (21.6-31.8); Chloride 104 mmol/L (96-109); Chol/HDL Ratio 6.23 Ratio; Globulin 2.8 g/dL (1.6-3.3); Glucose 108 mg/dL (70-110); LDL Cholesterol,Calculated 115.1 mg/dL (0.0-131.0); Potassium 4.3 mmol/L (3.5-5.5); Sodium 140 mmol/L (135-145); Total Bilirubin 0.7 mg/dL (0.3-1.2); Total Protein 7.6 g/dL (6.2-8.2)
== END | disposition home or self-care (01) ==
LOC: LABWHC1 08:26
PROVIDERS: ATTEND Nurse Practitioner Family
DX: Z12.5 Encounter for screening for malignant neoplasm of prostate (principal); E78.5 Hyperlipidemia, unspecified; E66.9 Obesity, unspecified; Z79.891 Long term (current) use of opiate analgesic
CPT/HCPCS: 36415; 80053; 80061; 83036; 84153; 85025

== ENCOUNTER → 2025-03-26 | Outpatient (CLI) | payer OTHER ==
--- NOTE | 2025-03-26 16:11 | CT ---
EXAMINATION TYPE: CT abdomen pelvis wo con DATE OF EXAM: 03/26/2025 COMPARISON: 06/19/2021 CLINICAL INDICATION: Male, 59 years old with history of K62.5 HEMORRHAGE OF ANUS AND RECTUM; PHH, Hem orrage of anus and rectum, painless rectal bleeding TECHNIQUE: CT scan of the abdomen and pelvis is performed without oral or IV contrast. CT DLP: 1424.[address] CTDI: mGy Automated exposure control for dose reduction was used. FINDINGS: Within the limitations of a non-contrast study, the following observations are made. There are single bilateral sub-5 mm nodules in each lower lobe There are one or 2 small gallstones but no gallbladder distention, wall thickening or pericholecystic fluid. There is no biliary ductal dilatation. There is moderate hepatomegaly and mild splenomegaly. There are no adrenal or pancreatic masses. There are no renal calcifications or hydronephrosis. The caliber of the abdominal aorta is normal and there is no retroperitoneal adenopathy or hemorrhage . The bowel loops are normal in caliber is no evidence of obstruction. No inflammatory changes are iden tified in the mesentery and there is no free intraperitoneal air or fluid. There is no pelvic mass, free fluid, abscess or adenopathy. There is moderate diverticulosis of the c olon without CT evidence of diverticulitis. Marked multilevel degenerative disc disease in the lower thoracic and lumbar spine. IMPRESSION: 1. Moderate hepatomegaly and splenomegaly. 2. Cholelithiasis without acute cholecystitis. 3. Moderate diverticulosis without acute diverticulitis. 4. Single bilateral lower lobe sub-5 mm nodules. [facility], , 03/26/2025 4:08 PM
== END | disposition home or self-care (01) ==
LOC: RADCTMAIN 13:38
PROVIDERS: ATTEND Family Medicine
DX: R16.2 Hepatomegaly with splenomegaly, not elsewhere classified (principal); K62.5 Hemorrhage of anus and rectum; K80.20 Calculus of gallbladder without cholecystitis without obstruction; K57.30 Diverticulosis of large intestine without perforation or abscess without bleeding; R91.8 Other nonspecific abnormal finding of lung field
CPT/HCPCS: 74176

== ENCOUNTER → 2025-03-26 | Outpatient (CLI) | payer OTHER ==
--- NOTE | 2025-03-26 15:44 | US ---
EXAMINATION TYPE: US arterial LE single level DATE OF EXAM: 03/26/2025 3:35 PM COMPARISONS: None. CLINICAL INDICATION: Male, 59 years old with history of R60.0 EDEMA; edema TECHNIQUE: Systolic pressures were taken of the upper and lower extremity arteries with ankle-brachia l indices and toe brachial indices calculated bilaterally. History of: Smoker: No Hypertension: Yes Diabetic: No Hyperlipidemia: Yes TIA/CVA: No Previous Vascular Surgery: No CAD: No NM: No Vascular Ulcers: No Claudication: No Gangrene: No FINDINGS: Doppler Waveforms: Right: Multiphasic Left: Multiphasic Brachial Artery systolic pressure: Right: 129 Left: 128 Posterior Tibial artery systolic pressure: Right: 159 Left: 155 Dorsalis Pedis artery systolic pressure: Right: 151 Left: 145 Ankle-Brachial Indices: Right: 1.23 Left: 1.20 IMPRESSION: JACKSON: Right: Normal 0.9 - 1.4, Recommendation: None Left: Normal 0.9 - 1.4, Recommendation: None [facility], , 03/26/2025 3:42 PM
== END | disposition home or self-care (01) ==
LOC: RADUSWWP 13:35
PROVIDERS: ATTEND Family Medicine
DX: R60.0 Localized edema (principal); E78.5 Hyperlipidemia, unspecified; I10 Essential (primary) hypertension
CPT/HCPCS: 93922

== ENCOUNTER 2025-04-21 12:03 | Day surgery (SDC) | payer OTHER ==
[2025-04-20 12:11] VITALS: BMI 38.7
[2025-04-21] MEDS: IV FLUID CONTINUATION 1,000 ML IV ONE (13:20)
[2025-04-21 13:26] VITALS: TEMP 97.9
[2025-04-21] MEDS: LACTATED RINGERS 1,000 ML IV SCH (13:33)
[2025-04-21] MEDS ORDERED: LIDOCAINE 1% INJ 10MG/ML (20 ML MDV) ONE (14:17)
[2025-04-21] MEDS ORDERED: PROPOFOL 10 MG/ML 20 ML VIAL IV ONE (14:17)
--- NOTE | 2025-04-21 14:36 | P.PCN ---
Date of Procedure: 04/21/25 Procedure(s) Performed: Brief history: Patient is a pleasant 59-year-old male scheduled for an elective upper endoscopy as well as colonoscopy as a part of evaluation of GERD and intermittent rectal bleeding Procedure performed: Esophagogastroduodenoscopy with biopsy. Colonoscopy Preoperative diagnosis: GERD Intermittent rectal bleeding Anesthesia: MAC Procedure: After informed consent was obtained from the patient was brought into the endoscopy unit and IV sedation was administered by anesthesia under continuous monitoring. Initially upper endoscopy was done. The Olympus GF 160 video endoscope was inserted inserted into the mouth and esophagus intubated without any difficulty and was gradually advanced into the stomach and duodenum and carefully examined. The bulb and second part of the duodenum appeared normal. The scope was then withdrawn into the stomach adequately insufflated with air and upon careful examination the antrum small polyps and nodular gastritis and biopsies were done from this area. Mucosa of the body, cardia and fundus appeared normal. The scope was then withdrawn into the esophagus. The GE junction was located at 40 cm to the incisors. It appeared regular with no erythema erosions or ulcerations. Rest of the esophagus appeared normal. Patient tolerated the procedure well. At this time the patient continued to remain sedation. Initial digital rectal examination was normal. Olympus CF 160 video colonoscope was then inserted into the rectum and gradually advanced to the cecum without any difficulty. Careful examination was performed as the scope was gradually being withdrawn. The prep was excellent. The cecum, ascending colon, transverse colon, descending colon, sigmoid colon and rectum appeared normal. Scattered sigmoid diverticulosis. Retroflexion was performed in the rectum and small internal hemorrhoid were noted. Patient tolerated the procedure well. Impression: 1. Upper endoscopy revealed small gastric polyps/nodular antral gastritis 2. Colonoscopy revealed scattered sigmoid diverticulosis and small internal hemorrhoids. Recommendations: Findings of this examination were discussed with the patient as well as his family. He was advised to follow-up with the biopsy results. Continue with on a high-fiber diet and take fiber supplements on a regular basis. Recommend repeat screening colonoscopy in 10 years.
[2025-04-21 14:45] VITALS: RESP 14
[2025-04-21 15:08] VITALS: BP 127/83; PULSE 70
== END 2025-04-21 15:24 | disposition home or self-care (01) ==
LOC: ORWHC2ENDO 12:03
PROVIDERS: ATTEND Internal Medicine Gastroenterology
DX: K29.50 Unspecified chronic gastritis without bleeding (principal); K31.7 Polyp of stomach and duodenum; K57.30 Diverticulosis of large intestine without perforation or abscess without bleeding; K64.8 Other hemorrhoids; K21.9 Gastro-esophageal reflux disease without esophagitis; E78.5 Hyperlipidemia, unspecified; I10 Essential (primary) hypertension; F41.9 Anxiety disorder, unspecified; F32.A Depression, unspecified; G47.33 Obstructive sleep apnea (adult) (pediatric); Z89.611 Acquired absence of right leg above knee; Z89.232 Acquired absence of left shoulder; Z79.899 Other long term (current) drug therapy
CPT/HCPCS: 88305; 45378; 43239; J2003; J2704